=== PATIENT | female | born 1935 | race Caucasian/White ===

== ENCOUNTER → 2018-03-25 13:57 | Outpatient (CLI) | payer MEDICARE, BC, SELFPAY ==
[2018-03-25 16:52] LABS: Hematocrit 41.7 % (37-47); Hemoglobin 13.8 g/dl (12.0-15.0); Mean Corp Hgb Conc 33.1 g/gl (32-36); Mean Corpuscular Hgb 32.1 pg (27.0-32.0); Mean Platelet Vol. 10.4 fl (6.2-12.0); Platelet Count 214 K/mm3 (150-450); RBC Distribution Width CV 12.7 % (11.6-14.6); RBC Distribution Width SD 44.1 fl (35.1-43.9); White Blood Count 4.3 K/mm3 (4.4-11.0)
[2018-03-25 16:56] LABS: Scan Indicated on CBC? Y/N NO
[2018-03-25 17:01] LABS: Albumin, Serum 3.6 g/dL (3.2-5.0); BUN 16 mg/dL (7-18); BUN/Creat Ratio 18.4 RATIO (10-20); Calcium,Total 8.8 mg/dL (8.5-10.1); Chloride 107 mmol/L (98-107); Creatinine, Serum 0.87 mg/dL (0.55-1.02); EST Glomerular Filtration Rate 66 mL/min (>60); Est Glom Filt Rate - Afr Amer 80 mL/min (>60); Glucose 98 mg/dL (74-106); Phosphorus 3.4 mg/dL (2.5-4.9); Potassium 4.2 mmol/L (3.5-5.1); Sodium Level 143 mmol/L (136-145)
== END ==
PROVIDERS: Visit Provider Internal Medicine Nephrology
DX: R33.9 Retention of urine, unspecified (principal)
CPT/HCPCS: 36415; 80069; 85027

== ENCOUNTER → 2018-03-27 11:47 | Outpatient (CLI) | payer MEDICARE, BC, SELFPAY ==
--- NOTE | 2018-03-27 11:55 | US_ITS ---
STUDY: RENAL ULTRASOUND - COMPLETE REASON FOR EXAM: Female, 82 years old. Urinary retention. TECHNIQUE: Ultrasound evaluation of the kidneys was performed with real-time and static funes-scale imaging. # of Images: 70 COMPARISON: None. FINDINGS: RIGHT KIDNEY: Normal location of the right kidney, which is normal in size. The right kidney measures 9 x 4.2 x 4.2 cm. There is a normal cortex of the right kidney. The renal cortex measures 1.2 cm. There is no right renal mass or cyst. There are no right renal calculi. There is no right hydronephrosis. DISTAL RIGHT URETER: There is non-visualization of the distal right ureter. There is no demonstrated right ureterovesical junction calculus. There is no demonstrated right ureteral jet. LEFT KIDNEY: Normal location of the left kidney, which is normal in size. The left kidney measures 11.4 x 4.7 x 3.8 cm. There is a normal cortex of the left kidney. The renal cortex measures 1.1 cm. There is no left renal mass or cyst. There are no left renal calculi. There is no left hydronephrosis. There is a duplicate left collecting system. DISTAL LEFT URETER: There is non-visualization of the distal left ureter. There is no demonstrated left ureterovesical junction calculus. There is no demonstrated left ureteral jet. BLADDER: The distended urinary bladder has a volume of 83 ml. The empty urinary bladder has a volume of 35 ml. The bladder is not well-distended and difficult to evaluate. There is no demonstrated mass within the urinary bladder. There are no demonstrated bladder calculi. US/Kidney and Bladder IMPRESSION: No evidence of hydronephrosis. Electronically Signed: Israel Santoyo MD at 3:40 EDT Tel , Service support ,
== END ==
PROVIDERS: Family Provider Student in an Organized Health Care Education/Training Program; PCP Student in an Organized Health Care Education/Training Program; Referring Provider Internal Medicine Nephrology; Visit Provider Internal Medicine Nephrology
DX: R33.9 Retention of urine, unspecified (principal)
CPT/HCPCS: 76770

== ENCOUNTER 2019-01-01 02:11 | Inpatient (IN) | payer MEDICARE, BC, SELFPAY ==
[2019-01-01] VITALS (12 sets, daily range): BP systolic 94–136; BP diastolic 48–65; PULSE 62–97; RESP 16–18; TEMP 36.1–37.3; O2SAT 95–99; BMI 25.8; BMI 25.1
--- NOTE | 2019-01-01 02:31 | RAD_ITS ---
HISTORY: CoughRAD - ChestFELLC/O LT GROIN PAIN, THIGH AND DISTAL LT FEMUR EXAMINATION/TECHNIQUE: XR Chest 1 View: Portable COMPARISON: None FINDINGS: Clothing artifact. Normal heart size. No vascular congestion, pleural effusion, or acute pulmonary infiltration. No pneumothorax. Atherosclerotic thoracic aorta. 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 RAD/Chest 1 View (Portable) IMPRESSION: No acute cardiopulmonary disease. at 0427 Reported and signed by: Miki Romero MD Electronically Signed: Miki Romero, at 4:26 EDT Tel , Service support ,
--- NOTE | 2019-01-01 02:31 | RAD_ITS ---
HISTORY: FELL C/O LT GROIN PAIN, THIGH AND DISTAL LT FEMUR EXAMINATION/TECHNIQUE: XR Pelvis 1 View COMPARISON: None FINDINGS: Generalized bony demineralization. Nondisplaced subcapital fracture of the left hip. Normal right hip. Chronic change with narrowing of the pubic symphysis accompanied by subchondral sclerosis of the pubic bones. Degenerative arthritis of the SI joints bilaterally and additional degenerative change of lower lumbar spine. RAD/Pelvis 1 or 2 Views IMPRESSION: 1. Acute, nondisplaced, subcapital fracture of left hip. 2. Chronic changes, as above. at 0414 Reported and signed by: Miki Romero MD Electronically Signed: Miki Romero, at 4:13 EDT Tel , Service support ,
--- NOTE | 2019-01-01 02:31 | RAD_ITS ---
HISTORY: FELL C/O LT GROIN PAIN, THIGH AND DISTAL LT FEMUR EXAMINATION/TECHNIQUE: XR left femur 4 views COMPARISON: AP pelvis 01/01/2019 FINDINGS: Acute, mildly displaced subcapital fracture of the left femoral neck. No dislocation. Intact distal left femur. No suspicious bony lesion. RAD/Femur Min 2 Views IMPRESSION: Acute, mildly displaced subcapital fracture of the left hip. Intact distal left femur. at 0418 Reported and signed by: Miki Romero MD Electronically Signed: Miki Romero, at 4:16 EDT Tel , Service support ,
--- NOTE | 2019-01-01 02:31 | ED.VIS.GEN ---
History of Present Illness Chief Complaint: Fall Informant: Patient Narrative: Patient presents with left hip injury. She stated that at 9 PM last night she was chasing her cat lost her balance and fell. She is having pain in the left groin. She took an aspirin which helped. She used ice and heat. Hurts to move. She is able to walk and wanted to make sure she did not fracture anything. Current severity is mild to moderate. No previous injury. Past Medical History - Allergies and Home Meds Allergies/Adverse Reactions: Allergies Sulfa (Sulfonamide Antibiotics) Adverse Reaction (Verified 01/01/19 02:14) Unknown Primary Care Physician: Bunny Diaz DO [Primary Care Provider] - Prior records reviewed: Yes Past Medical History: - - Reviewed Surgical History: - - Reviewed Smoking Status: Former smoker Alcohol: None Drugs: None Review of Systems General: Denies: Chills, Fever, Sweats Eyes: Denies: Visual changes - bilaterally, Diplopia ENT: Denies: Rhinorrhea, Sore throat Cardiovascular: Denies: Chest pain, Palpitations Respiratory: Denies: Dyspnea, Cough, Dyspnea on exertion Gastrointestinal: Denies: Abdominal pain, Nausea, Vomiting, Diarrhea, Melena, Hematochezia Genitourinary: Denies: Dysuria, Hematuria, Frequency Musculoskeletal: Reports: Extremity Pain - See HPI. Denies: Back pain Skin: Denies: Rash, Wounds Neurological: Denies: Headache, Weakness, Numbness Physical Exam Vital Signs/Narrative: Vital Signs Temp Pulse Resp BP Pulse Ox 01/01/19 02:12 98.3 F 95 18 136/51 H 97 General: Well nourished, Well developed, No Acute Distress Head: Normocephalic, Atraumatic Eyes: Perrl, EOMI ENT: Moist mucous membranes, No rhinorrhea Neck: Supple, Nontender Cardiovascular: Regular rate, Regular rhythm, No murmurs Respiratory: No distress, CTA bilaterally, Chest nontender Abdomen: Soft, Nontender, Nondistended, Normal bowel sounds Back: Nontender, Normal Inspection Extremities: No edema, Tenderness - Tenderness elicited in the left hip deep in the groin with logroll and lifting the leg. Tenderness with active range of motion of the left lower leg. No bony step-off or deformity.. Negative for: Nontender Skin: Normal color, No rash Neurological: Alert, Oriented x3, Cranial nerves II-XII grossly intact, Normal Strength, Normal Sensation Psychological: Normal affect, Normal Mood Diagnostic/Tx/Re-eval - Medical Decision Making Patient stated she did not want anything for pain. X-ray of the left hip obtained left hip shows a cervical neck fracture. Chest x-ray showed nothing acute. EKG shows sinus rhythm at a rate of 78. Right bundle branch block noted. Screening labs obtained and negative. Patient discussed the hospitalist and will be admitted ED Disposition - Plan for ED Patient: Diagnosis: Hip fracture, left Referrals: Bunny Diaz DO [Primary Care Provider] -
--- NOTE | 2019-01-01 03:00 | EKG12_ITS ---
Test Reason : PRE-OP Blood Pressure : / mmHG Vent. Rate : 078 BPM Atrial Rate : 078 BPM P-R Int : 160 ms QRS Dur : 116 ms QT Int : 378 ms P-R-T Axes : 064 -39 012 degrees QTc Int : 430 ms Normal sinus rhythm Left axis deviation Right bundle branch block Moderate voltage criteria for LVH, may be normal variant Abnormal ECG Confirmed by ERNIE GARCIA, ERASMO ([id number]), news assignment editor PARISA LAU ([id number]) on 01/02/2019 9:43:06 AM Referred By: Byron Espitia Confirmed By:YULISA KLEIN MD
[2019-01-01 03:24] LABS: Absolute Neutrophil Count 6.3 X10^3/uL (2.0-7.7); Basophil# 0.03 X10^3/uL; Basophil% 0.4 % (0-1); Eosinophil# 0.04 X10^3/uL; Eosinophils% 0.5 % (0-5); Hemoglobin 14.5 g/dL (12.0-15.0); Mean Corp Hgb Conc 33.7 g/dL (32-36); Mean Corpuscular Hgb 31.9 pg (27.0-32.0); Mean Corpuscular Volume 94.5 fL (81-99); Mean Platelet Vol. 9.8 fl (6.2-12.0); Monocyte# 0.91 X10^3/uL; Monocyte% 10.9 % (0-10); NRBC Flagged by Analyzer 0 % (0-5); Neutrophil # 6.33 X10^3/uL (2.7-7.7); Platelet Count 198 K/mm3 (150-450); RBC Distribution Width CV 12.1 % (11.6-14.6); RBC Distribution Width SD 42.4 fl (35.1-43.9); Red Blood Count 4.55 M/mm3 (4.2-5.4); White Blood Count 8.3 K/mm3 (4.4-11.0)
[2019-01-01 03:30] LABS: Partial Thromboplast Time 26.6 Seconds (24.1-36.2); Prothrombin Time (Protime)PT. 13.3 SECONDS (11.7-14.9)
[2019-01-01 03:34] LABS: Anion Gap 8 (5-15); BUN 14 mg/dL (7-18); BUN/Creat Ratio 21.1 RATIO (10-20); Calcium,Total 8.9 mg/dL (8.5-10.1); Chloride 106 mmol/L (98-107); Creatinine, Serum 0.66 mg/dL (0.55-1.02); EST Glomerular Filtration Rate 90 mL/min (>60); Est Glom Filt Rate - Afr Amer 109 mL/min (>60); Estimated Creatinine Clearance 30.08 ml/min; Glucose 110 mg/dL (74-106); Potassium 4.1 mmol/L (3.5-5.1); Sodium Level 140 mmol/L (136-145)
--- NOTE | 2019-01-01 04:15 | PCM.HP.STD ---
Problem List (1) Hip fracture, left Status: Acute History of Present Illness Date of Admission: 01/01/19 Chief Complaint: Left hip pain The patient is a 83 year old F with no significant past medical history who presents after a fall today. She states that she was chasing her cat and tripped and fell on her left hip. She had immediate pain and came to the ER. X-ray of her hip shows a cervical fracture. In the ER her vital signs are stable and her labs are unremarkable, chest x-ray was normal as was EKG. She states that she does not have any shortness of breath or chest pain currently or if she walks up and down stairs which she does a couple times a day at her house. Past Medical History Allergies Sulfa (Sulfonamide Antibiotics) Adverse Reaction (Verified 01/01/19 02:14) Unknown Home Medications: Ambulatory Orders Medication Instructions Recorded Estradiol 0.01 units TRANSDERM. QWEEK 01/01/19 Surgical History: adenoidectomy, appendectomy, tonsillectomy, - Lives: Alone Smoking Status: Former smoker Tobacco Use: Cigarettes Alcohol: None Drugs: None - *Family History Maternal History Items: Renal Disease Paternal History Items: No pertinent history Review of Systems Constitutional: Denies: Chills, Fever, Weight Change HEENT: Denies: Head Aches, Sinus Congestion, Sinus Drainage Cardiovascular: Denies: Chest Pain, Palpitations Respiratory: Denies: Cough, Shortness of breath at rest, Sputum production Gastrointestinal: Denies: Abdominal Pain, Nausea, Vomiting Genitourinary: Denies: Dysuria Musculoskeletal: Reports: Leg Pain. Denies: Joint Pain, Joint Tenderness Skin: Denies: Rash, Wounds Neurological: Denies: Numbness, Tingling, Focal weakness Psychiatric: Denies: Anxiety, Depression Hematologic/ Lymphatic: Denies: Easy Bruising, Easy Bleeding VTE Information - Inpt Only VTE Present on Admission: No - Physical Exam General: Alert, Oriented x3, Cooperative, No apparent distress HEENT: Atraumatic, PERRLA, EOMI, Normocephalic Oral: Moist Mucosa Neck: Supple, No JVD Lungs: Clear to auscultation, Normal air movement, No rhonchi, No wheeze, No rales Cardiovascular: Regular rate, Regular Rhythm, Normal S1, Normal S2, No murmurs Abdomen: Soft, Non Tender, Non-Distended, No Hepato-splenomegaly Extremities: No edema, Capillary Refill Less than 3 Seconds Skin: No rashes, No breakdown Musculoskeletal: Tenderness - Left hip Neurological: Neuro grossly intact, Sensory exam intact to light touch and pain Psych/Mental Status: Normal Affect, Appropriate Vital Signs Temp Pulse Resp BP Pulse Ox 98.3 F 75 18 129/61 H 98 01/01/19 04:10 01/01/19 04:10 01/01/19 04:10 01/01/19 04:10 01/01/19 04:10 Oxygen Delivery Method Room Air Weight: 132 lb 4.438 oz Body Mass Index (BMI) 25.8 Laboratory Tests Past 24 Hrs 01/01/19 01/01/19 01/01/19 03:15 03:15 03:15 WBC 8.3 RBC 4.55 Hgb 14.5 Hct 43.0 MCV 94.5 MCH 31.9 MCHC 33.7 RDW Std Deviation 42.4 RDW Coeff of Camille 12.1 Plt Count 198 MPV 9.8 Immature Gran % (Auto) 0.200 Neut % (Auto) 76.0 H Lymph % (Auto) 12.0 L Edmonson % (Auto) 10.9 H Eos % (Auto) 0.5 Baso % (Auto) 0.4 Absolute Neuts (auto) 6.3 Absolute Lymphs (auto) 1.00 Absolute Nucleated RBC 0.00 Nucleated RBC % 0 PT 13.3 INR 1.0 APTT 26.6 Sodium 140 Potassium 4.1 Chloride 106 Carbon Dioxide 26.0 Anion Gap 8 BUN 14 Creatinine 0.66 Estim Creat Clear Calc 30.08 Est GFR (MDRD) Af Amer 109 Est GFR (MDRD) Non-Af 90 BUN/Creatinine Ratio 21.1 H Glucose 110 H Calcium 8.9 Assessment/Plan All Active Problems Hip fracture, left (Acute) 1. Left cervical hip fracture -This is due to a mechanical fall -We will make n.p.o. for now and consult orthopedic surgery for evaluation -Morphine IV for pain -PT/OT -PT/INR is pending however she is low risk for surgery 2. She sees her doctor regularly and takes no scheduled medications, she occasionally uses an albuterol inhaler and occasionally uses a vaginal estrogen cream. DVT: SCDs Code Visit Inpatient E&M: 91562 Init Hosp L2
[2019-01-01 05:43] LABS: Absolute Lymphocyte Count 0.82 X10^3/uL (0.83-4.51); Absolute Neutrophil Count 5.7 X10^3/uL (2.0-7.7); Basophil# 0.03 X10^3/uL; Basophil% 0.4 % (0-1); Eosinophil# 0.01 X10^3/uL; Eosinophils% 0.1 % (0-5); Hematocrit 41.9 % (37-47); Lymphocyte # 0.82 X10^3/ul (4.0); Lymphocyte % 11.2 % (19-41); Mean Corp Hgb Conc 33.4 g/dL (32-36); Mean Corpuscular Hgb 31.1 pg (27.0-32.0); Mean Corpuscular Volume 93.1 fL (81-99); Mean Platelet Vol. 10.1 fl (6.2-12.0); Monocyte# 0.72 X10^3/uL; Monocyte% 9.8 % (0-10); NRBC Flagged by Analyzer 0 % (0-5); Neutrophil # 5.73 X10^3/uL (2.7-7.7); Neutrophil % 78.1 % (47-70); Platelet Count 194 K/mm3 (150-450); RBC Distribution Width CV 12.1 % (11.6-14.6); RBC Distribution Width SD 41.8 fl (35.1-43.9); White Blood Count 7.3 K/mm3 (4.4-11.0)
[2019-01-01 05:57] LABS: Anion Gap 8 (5-15); BUN 13 mg/dL (7-18); BUN/Creat Ratio 19.8 RATIO (10-20); Calcium,Total 8.7 mg/dL (8.5-10.1); Chloride 108 mmol/L (98-107); Creatinine, Serum 0.66 mg/dL (0.55-1.02); EST Glomerular Filtration Rate 91 mL/min (>60); Est Glom Filt Rate - Afr Amer 111 mL/min (>60); Estimated Creatinine Clearance 38.34 ml/min; Glucose 105 mg/dL (74-106); Sodium Level 142 mmol/L (136-145)
[2019-01-01] MEDS: Morphine 2 MG/ML Syringe IV ×2 (09:33→20:29)
--- NOTE | 2019-01-01 10:00 | CASEMGMT ---
Social Work Assessment Referral Date: 01/01/2019 Date of Assessment 01/01/2019 Reason for consult: Hip fracture, SNF likely Informant: SW Personal Status: SW met with pt to complete initial assessment. SW introduced self and role at [facility]. Pt is alert and orientated x3. Pt states that she lives with her cat in a one story home. Pt states that her washer is in the basement. Pt states there are two steps to enter the home and there are railings around the steps. Pt states her PCP is Dr. Diaz and preferred pharmacy is [facility]. DME include [facility]. Pt states that she was independent with ADLS except she is lazier than she used to be and doesn't clean her house as much as she used to. Pt states that she has good support and her niece is supportive and her neighbor. Pt states she doesn't like to bother people to help her though. Substance Abuse Hx: Pt denied. Mental Health Hx: Pt states she has a history of anxiety and depression. Pt denied taking any medications for anxiety and depression, states the only medication she takes is her asthma medication. Pt denied any suicidal thoughts/plans/ideations. SAGRARIO educated pt on discharge options including home with HHC, outpatient therapy, and SNF. Pt states she will probably have to go to a SNF. SW educated pt on area SNF. SW informed pt that TCU at [facility] doesn't have any beds. Pt is agreeable to [facility]. SAGRARIO explained Medicare guidelines and coverage at SNF and referral process. Pt states understanding. SW faxed referral to [facility]. SAGRARIO placed a call to Holly at [facility] and left her a message updating her on referral and that pt is having surgery today and this worker will fax PT/OT when available. Plan: [facility] Saturday pending acceptance Dagmar Truong MEDICAL PROGRAM SPECIALIST, HYDRO PLANT OPERATOR
--- NOTE | 2019-01-01 11:31 | PCM.CONS.GEN ---
Reason for Consult Date of Consultation: 01/01/19 Reason for Consultation: left hip pain History of Present Illness: The patient is a 83 year old F independent ambulator who fell onto left hip and had immediate pain and decreased ability to wb. presents to er and xrays confirm nd left fem neck frx and ortho consulted. denies head trauma, loc, n/v/ or other constitutional symptoms. states pain localized to groin only, denies pain in other joints, etc. [] Past Medical History Allergies Sulfa (Sulfonamide Antibiotics) Adverse Reaction (Verified 01/01/19 02:14) Unknown Home Medications: Ambulatory Orders Medication Instructions Recorded Multivit with Calcium,Iron,Min 1 ea PO DAILY 01/01/19 [Multiple Vitamins For Women] Vit D3/Folic Acid/B2/B6/B12 1 ea PO BID 01/01/19 [Folgard Tablet] Calcium Carbonate [Tums] 500 mg PO BID #1 tab 01/02/19 Hydrocodone Bitart/Apap 5-325 1 - 2 tab PO Q6H PRN PRN 7 Days 01/02/19 [[place] 5/325] #30 tab Surgical History: adenoidectomy, appendectomy, tonsillectomy, - Lives: Alone Smoking Status: Former smoker Tobacco Use: Cigarettes Alcohol: None Drugs: None - *Family History Maternal History Items: Renal Disease Paternal History Items: No pertinent history Review of Systems Constitutional: Denies: Chills, Fever, Weight Change HEENT: Denies: Head Aches, Sinus Congestion, Sinus Drainage Cardiovascular: Denies: Chest Pain, Palpitations Respiratory: Denies: Cough, Shortness of breath at rest, Sputum production Gastrointestinal: Denies: Abdominal Pain, Nausea, Vomiting Genitourinary: Denies: Dysuria Musculoskeletal: Reports: Joint Pain - left groin. Denies: Joint Tenderness Skin: Denies: Rash, Wounds Neurological: Denies: Numbness, Tingling, Focal weakness Psychiatric: Denies: Anxiety, Depression, Homicidal Ideations, Suicidal Ideations Hematologic/ Lymphatic: Denies: Easy Bruising, Easy Bleeding - Physical Exam General: Alert, Oriented x3, Cooperative HEENT: Atraumatic, PERRLA, EOMI, Normocephalic Neck: Supple, No JVD, Negative Carotid Bruits Lungs: Clear to auscultation, Normal air movement Cardiovascular: Regular rate, No murmurs Abdomen: Bowel Sounds Present, Soft, Non Tender Extremities: No edema, Capillary Refill Less than 3 Seconds Skin: No rashes, No breakdown Musculoskeletal: Tenderness - left groin, neg sec survey, arom/prom ankle intact, compts soft, sgi Neurological: Cranial nerves II-XII grossly intact Psych/Mental Status: Normal Affect, Appropriate Vital Signs Temp Pulse Resp BP Pulse Ox 98.2 F 84 18 126/58 H 95 01/01/19 08:40 01/01/19 08:40 01/01/19 08:40 01/01/19 08:40 01/01/19 08:40 Oxygen Delivery Method Room Air Weight: 127 lb 13.89 oz Body Mass Index (BMI) 25.1 Intake and Output for Last 24 Hours 12/30/18 12/31/18 01/01/19 23:59 23:59 23:59 Output Total 600 / 600 Balance -600 / -600 Laboratory Tests Past 24 Hrs 01/01/19 01/01/19 01/01/19 03:15 03:15 03:15 WBC 8.3 RBC 4.55 Hgb 14.5 Hct 43.0 MCV 94.5 MCH 31.9 MCHC 33.7 RDW Std Deviation 42.4 RDW Coeff of Camille 12.1 Plt Count 198 MPV 9.8 Immature Gran % (Auto) 0.200 Neut % (Auto) 76.0 H Lymph % (Auto) 12.0 L Frederick % (Auto) 10.9 H Eos % (Auto) 0.5 Baso % (Auto) 0.4 Absolute Neuts (auto) 6.3 Absolute Lymphs (auto) 1.00 Absolute Nucleated RBC 0.00 Nucleated RBC % 0 PT 13.3 INR 1.0 APTT 26.6 Sodium 140 Potassium 4.1 Chloride 106 Carbon Dioxide 26.0 Anion Gap 8 BUN 14 Creatinine 0.66 Estim Creat Clear Calc 30.08 Est GFR (MDRD) Af Amer 109 Est GFR (MDRD) Non-Af 90 BUN/Creatinine Ratio 21.1 H Glucose 110 H Calcium 8.9 Blood Type Antibody Screen 01/01/19 01/01/19 01/01/19 05:05 05:05 11:05 WBC 7.3 RBC 4.50 Hgb 14.0 Hct 41.9 MCV 93.1 MCH 31.1 MCHC 33.4 RDW Std Deviation 41.8 RDW Coeff of Camille 12.1 Plt Count 194 MPV 10.1 Immature Gran % (Auto) 0.400 Neut % (Auto) 78.1 H Lymph % (Auto) 11.2 L Frederick % (Auto) 9.8 Eos % (Auto) 0.1 Baso % (Auto) 0.4 Absolute Neuts (auto) 5.7 Absolute Lymphs (auto) 0.82 L Absolute Nucleated RBC 0.00 Nucleated RBC % 0 PT INR APTT Sodium 142 Potassium 4.0 Chloride 108 H Carbon Dioxide 26.0 Anion Gap 8 BUN 13 Creatinine 0.66 Estim Creat Clear Calc 38.34 Est GFR (MDRD) Af Amer 111 Est GFR (MDRD) Non-Af 91 BUN/Creatinine Ratio 19.8 Glucose 105 Calcium 8.7 Blood Type Pending Antibody Screen Pending Assessment/Plan All Active Problems Hip fracture, left (Acute) to OR today pending hospitalist clearance/ ok for surgery perc screw fixation consent left hip ancef 2g octor Reviewed the pre-operative plans with the patient. Risks and benefits of the procedure were fully explained, including but not limited to infection, neurovascular injury, continued pain, arthritis, stiffness, need for further surgery, re-injury, DVT, PE, general risks of anesthesia, and loss of limb or life. The patient understands all the risks and does wish to proceed with written consent.
--- NOTE | 2019-01-01 12:43 | NURSING ---
female arrived to floor, states she is patients neighbor yareli and i came to get her house tang. she told me it is in her purse. i have to go feed her cat. informed visitor pt off floor and will check with pt. said nurse phoned down to AC and directly spoke with pt- pt states that her tang is in her purse in her room and it is okay to give it to Yareli her neighbor and Yareli can keep it. Purse obtained from pt locker- tang fob with green insurance tag on it given to Yareli and then phone handed directly to Deborah and she spoke directly to pt. Purse placed back in locker in pt room.
[2019-01-01] MEDS: Cefazolin 2 GM in 0.9% Normal Saline 100 ML IV (13:11)
[2019-01-01] MEDS: Mupirocin Ointment 22gm Tube 1 APPLIC (14:19)
--- NOTE | 2019-01-01 14:30 | RAD_ITS ---
STUDY: X-RAY - PELVIS AND LEFT HIP REASON FOR EXAM: Hip fracture ORIF. TECHNIQUE: 2 intraoperative views of the pelvis and hip. COMPARISON: Radiographs 01/01/2019. FINDINGS: There are 3 cannulated screws transfixing a femoral neck fracture in anatomic alignment and position. Electronically Signed: Solis Charles MD at 15:02 EDT Tel , Service support , RAD/HIP, UNI W/ Pelvis 2-3 Views
--- NOTE | 2019-01-01 14:42 | CHAPLAIN ---
patient and bed out of room; left calling card
--- NOTE | 2019-01-01 14:56 | RAD_ITS ---
STUDY: X-RAY - PELVIS AND LEFT HIP REASON FOR EXAM: Postop left hip. TECHNIQUE: 2 views of the pelvis and hip. COMPARISON: Radiographs 01/01/2019. FINDINGS: There are skin lulu overlying the proximal left thigh with postoperative gas. Normal bilateral superior and inferior pubic rami. There are degenerative changes of the pubic symphysis. Normal bilateral ischial tuberosities. There are cannulated screws transfixing a left femoral neck fracture in anatomic alignment and position. Normal acetabulum. Normal hip joint. RAD/Hip Min 2 Views (Portable) IMPRESSION: ORIF of left femoral neck fracture without evidence of complication. Electronically Signed: Solis Charles MD at 15:41 EDT Tel , Service support ,
--- NOTE | 2019-01-01 14:57 | OP.PCM_ITS ---
Report of Operation Date of Procedure: 01/01/19 Pre-Operative Diagnosis: left hip nd fem neck fracture Post-Operative Diagnosis: same Surgery/Procedure Performed:: left hip perc screw fixation/ 7.3 mayda screws synthes process inspector: ruthie Type of Anesthesia:: General Anesthesiologist: Rom Bose Estimated Blood Loss (mL): minimal Fluids Replaced: see anesthesia chart Description of Procedure: preop note Patient is not at home ambulating and fell onto her left hip. Unavailable to weight-bear and was called and sent to the ER or x-rays showed a nondisplaced femoral neck fracture. Risk benefits alternatives surgery discussed with patient. Risks including but not limited to blood loss, blood clot, infection, neurovascular injury, avascular necrosis need for conversion to hemiarthroplasty versus a total hip, loss of life and loss of limb. Patient is more like proceed with left percutaneous screw fixation of the hip. Operative note Patient seen and examined preop holding area. Left hip was marked. Patient brought to the operating placed supine the operating table. Sign, issues, antibiotics were administered. Patient was placed in traction table and we did use a little bit of traction in order to gain her a little bit of length because she was a little bit of impacted valgus impacted. We then used fluoroscopy in both AP and lateral planes to ensure that we had anatomic reduction. She did have at that time. The left leg was then prepped and draped usual sterile fashion. We then used the inferior most screw placed that up into the center of the femoral head we then use a bullet guide to place our more superior anterior and superior posterior screw guidewires. We then measured the accordingly and then placed the corresponding's 7.3 cannulated Synthes screws into the femoral head making sure not to encroach into the joint. We took multiple planes in AP and lateral in order to ensure good reduction and maintenance of our screw fixation which we did have. The incision was closed irrigated with copious muscle sterile saline. Was closed with deep 1 subcuticular 2 oh and lulu. Sterile dressings were applied. Patient tired procedure well no complication transferred recovery room in stable condition. Postoperative note Weight-bear as tolerated Anticoag ancef X-rays Call with increased pain numbness tingling or further issues arise next This note was generated with [employer] dictation software. It may contain incorrect words, spelling, and punctuation that were not noted in checking the note before signing. - Admit VTE Documentation VTE Mechan Device Prophylaxis: SCD's
--- NOTE | 2019-01-01 15:04 | CASEMGMT ---
Social Work Note SW received call from Holly at [facility] stating she is able to accept pt on Saturday but would like operative report and PT/OT once available. Pt is still off floor for surgery. Plan: [facility] Saturday Dagmar Truong MSW, PANEL WIRER
--- NOTE | 2019-01-01 17:19 | PCM.HOSP.N ---
Hospitalist Note Patient was seen and examined today before her ORIF of her left hip fracture. Patient appeared stable preop for the surgery, I reviewed the patient's EKG and performed a physical exam. Patient will need placement in a senior living facility at the time of discharge from the hospital. I discussed this with her today.
--- NOTE | 2019-01-01 20:20 | NURSING ---
Pt OOB for first time post-op to [facility]. Tolerated well.
[2019-01-01] MEDS: Cefazolin 1 GM/50 ML BAG IV (20:39)
[2019-01-01] MEDS: HYDROcodone Bitartrate/Apap 5/325 Tablet PO (22:55)
[2019-01-02 03:00] VITALS: BP 95/48; PULSE 83; RESP 16; TEMP 36.7; O2SAT 93
[2019-01-02] MEDS: HYDROcodone Bitartrate/Apap 5/325 Tablet PO ×2 (04:56→12:01)
[2019-01-02] MEDS: Cefazolin 1 GM/50 ML BAG IV (04:56)
[2019-01-02 07:58] VITALS: BP 98/48; PULSE 81; RESP 16; TEMP 37; O2SAT 92
--- NOTE | 2019-01-02 10:16 | PCM.HP.STD ---
History of Present Illness Date of Admission: 01/02/19 Chief Complaint: left hip pain The patient is a 83 year old F presents to [facility] with debility sp left hip fx orif performed 01/01/[address] morejon. lives alone. believes her hip fx may have actually caused her to fall. house is one story but basement laundry. lives independently. post op course has been uneventful. pain controlled. goal of rehab is muslim of prior level of functional independence. per admit note:The patient is a 83 year old F with no significant past medical history who presents after a fall today. She states that she was chasing her cat and tripped and fell on her left hip. She had immediate pain and came to the ER. X-ray of her hip shows a cervical fracture. In the ER her vital signs are stable and her labs are unremarkable, chest x-ray was normal as was EKG. She states that she does not have any shortness of breath or chest pain currently or if she walks up and down stairs which she does a couple times a day at her house. Past Medical History Allergies Sulfa (Sulfonamide Antibiotics) Adverse Reaction (Verified 01/01/19 02:14) Unknown Home Medications: Ambulatory Orders Medication Instructions Recorded Calcium Carbonate [Tums] 500 mg PO DAILY@0800 01/01/19 Estradiol 0.01 units TRANSDERM. QWEEK 01/01/19 Ginkgo Biloba 120 mg PO BID 01/01/19 Lactobacillus Acidophilus 1 ea PO DAILY 01/01/19 [Probiotic Acidophilus] Magnesium Oxide [Mag-Oxide] 200 mg PO DAILY 01/01/19 Multivit with Calcium,Iron,Min 1 ea PO DAILY 01/01/19 [Multiple Vitamins For Women] Papaya 1 ea PO DAILY 01/01/19 Vit D3/Folic Acid/B2/B6/B12 1 ea PO BID 01/01/19 [Folgard Tablet] Surgical History: adenoidectomy, appendectomy, tonsillectomy, - Lives: Alone Smoking Status: Former smoker Tobacco Use: Cigarettes Alcohol: None Drugs: None - *Family History Maternal History Items: Renal Disease Paternal History Items: No pertinent history Review of Systems Constitutional: Denies: Chills, Fever, Weight Change HEENT: Denies: Head Aches, Sinus Congestion, Sinus Drainage Cardiovascular: Denies: Chest Pain, Palpitations Respiratory: Denies: Cough, Shortness of breath at rest, Sputum production Gastrointestinal: Denies: Abdominal Pain, Nausea, Vomiting Genitourinary: Denies: Dysuria Musculoskeletal: Reports: Joint Pain. Denies: Joint Tenderness Skin: Denies: Rash, Wounds Neurological: Denies: Numbness, Tingling, Focal weakness Psychiatric: Denies: Anxiety, Depression, Homicidal Ideations, Suicidal Ideations Hematologic/ Lymphatic: Denies: Easy Bruising, Easy Bleeding VTE Information - Inpt Only VTE Present on Admission: Yes VTE Mechan Device Prophylaxis: SCD's Patient Problems: Active and Suspected Problems Hip fracture, left (Acute) - Physical Exam General: Alert, Oriented x3, Cooperative HEENT: Atraumatic, PERRLA, EOMI, Normocephalic Neck: Supple, No JVD, Negative Carotid Bruits Lungs: Clear to auscultation, Normal air movement Cardiovascular: Regular rate, No murmurs Abdomen: Bowel Sounds Present, Soft, Non Tender Extremities: No edema, Capillary Refill Less than 3 Seconds Skin: No rashes, No breakdown Musculoskeletal: No Tenderness to Palpation of Joints or Extremities Neurological: Cranial nerves II-XII grossly intact Psych/Mental Status: Normal Affect, Appropriate Vital Signs Temp Pulse Resp BP Pulse Ox 37.0 C 81 16 98/48 L 92 01/02/19 07:58 01/02/19 07:58 01/02/19 07:58 01/02/19 07:58 01/02/19 07:58 Oxygen Flow Rate (L/min) 2 Oxygen Delivery Method Room Air Weight: 58 kg Body Mass Index (BMI) 25.1 Intake and Output for Last 24 Hours 12/31/18 01/01/19 01/02/19 23:59 23:59 23:59 Intake Total 1399 / 2014 943 / 943 Output Total 1200 / 1300 100 / 100 Balance 200 / 715 843 / 843 Laboratory Tests Past 24 Hrs 01/01/19 11:05 Blood Type A POSITIVE Antibody Screen NEGATIVE Current Home Med List Medication Instructions Recorded Confirmed Type Calcium Carbonate [Tums] 500 mg PO DAILY@0800 01/01/19 01/01/19 History Estradiol 0.01 units TRANSDERM. QWEEK 01/01/19 01/01/19 History Ginkgo Biloba 120 mg PO BID 01/01/19 01/01/19 History Lactobacillus Acidophilus 1 ea PO DAILY 01/01/19 01/01/19 History [Probiotic Acidophilus] Magnesium Oxide [Mag-Oxide] 200 mg PO DAILY 01/01/19 01/01/19 History Multivit with Calcium,Iron,Min 1 ea PO DAILY 01/01/19 01/01/19 History [Multiple Vitamins For Women] Papaya 1 ea PO DAILY 01/01/19 01/01/19 History Vit D3/Folic Acid/B2/B6/B12 1 ea PO BID 01/01/19 01/01/19 History [Folgard Tablet] Current Medications Hydrocodone Bitart/Acetaminophen 1 - 2 tablet 01/01/19 14:55 01/02/19 04:56 [place] 5mg-325mg PO 2 tablet Q6H PRN PRN Administration Mild-moderate pain (scale 1-5) Melatonin 3 mg 01/01/19 04:25 Melatonin PO QHS PRN PRN INSOMNIA Morphine Sulfate 2 mg 01/01/19 04:25 01/01/19 20:29 IV 2 mg Q3H PRN PRN Administration SEVERE PAIN (6-10/10) Ondansetron HCl 4 mg 01/01/19 04:25 Zofran IV Q8H PRN PRN NAUSEA/VOMITING Sodium Chloride 10 - 40 ml 01/01/19 05:30 IV UD PRN SALINE FLUSH Assessment/Plan All Active Problems Hip fracture, left (Acute) left hip fx sp orif, previsously functionallly independent, goal of rehab is muslim of functional independence pt for gait and balance ot for adls prn analgesics bowel protocol dvt prophylaxis: scds
--- NOTE | 2019-01-02 10:22 | PCM.RU.PYE ---
Admission Information Status Changes from Prescreening?: No changes Identified Actual Problem List:: Falls, Pain, ALteration in Cmfrt, Alteration in Nutrition, Mobility Impaired, Self Care Deficit, Ineffect.D/C Plan r/t Psy Potential Problem List:: DVT, Bleeding, Infection, UTI, Aspiration, Falls, Skin Integrity, Depression Risk of Complications DVT: LMWH, LILA Hose, Sequential Compression Device Bleeding: Monitor Lab Values, Nursing to Teach Precautions for anti-coagulation therapy., Wound, if applicable, to be assessed every shift., Stroke patients assessed for lethargy or change in status. Infection: Clinical Staff to Monitor for S/S of infection:, S/S of infection include fever, redness, warmth, etc. Urinary Tract Infection: Monitor for frequency, burning, discomfort, or incontinence., Nursing will obtain urine sample for urinalysis and C&S when ordered. Aspiration: Clinical staff will monitor for coughing, drooling, congestion., Speech will evaluate swallowing and dsyphasia., Nursing will monitor patient swallowing during meals. Falls: Patient will be evaluated for Fall Precautions, Patient will be placed on Fall Precautions as indicated per protocol. Skin Breakdown: Nursing will assess skin daily using assessment tool., Nursing will place on Skin Breakdown Precautions as indicated. Pain: Clinical staff will assess patient's pain level per protocol., Medications will be given, if needed, and the pain level reassessed., Other methods: Massage, distraction, decrease stimulus, etc. used PRN. Plan of Care Patient requires physician specializing in physical medicine and rehab oversight to provide close medical supervision of rehab issues including: Pain Management, Sleep Problems, Bowel and Bladder, Medical and co-morbidity Management, DVT prophylaxis, Rehabilitation Leadership, Coordination of treatment team Patient needs Physical Therapy: For a minimum of 1 hour, At least 5 out of 7 days Patient needs Physical Therapy to improve:: Mobility, Mobility, Mobility, Strengthening, Transfers, Stretching, ROM, Endurance, Stairs, Gait, Balance Patient needs Occupational Therapy: For a minimum of 1 hour, At least 5 out of 7 days Patient needs Occupational Therapy to improve ADL's incl.: Eating, Grooming, Bathing, Dressing, Toileting, Toilet transfers, Community Reintegration, Higher functioning activities, Household tasks, Adaptive Equipment, Splinting, Other activities as determined Patient requires 24/ Rehabilitation Nursing for: Pain Issues, Identifying and preventing risk factors, Monitoring and reporting current medical conditions, Assisting with ambulation, transfer, and all ADL's, Teaching patients about disease process and medications, Family teaching, Providing safe environment, Bowel and Bladder Issues, Skin integrity, Medication Management Patient needs Grey Goods Tester/ Case Management for: Discharge Planning, Arranging Home Equipment or Services, Family Interventions Patient needs Dietary and Nutrition Services for: Adequate Nutrition, Nutritional Supplements, Nutritional Education Goals Patient will remain: free from falls, or injury at time of discharge. Patient will perform bed mobility at: MOD I level of assist. Patient will complete transfers from bed to chair at: MOD I level of assist. Patient will ambulate: 100 feet, with MOD I assist, with LRD Patient will complete upper body dressing at: MOD I level of assist. Patient will complete lower body dressing at: MOD I level of assist. Patient will complete toileting at: MOD I level of assist. Patient will perform bathing at: MOD I level of assist. Patient will complete grooming at: MOD I level of assist. Patient will complete home management skills at: MOD I level of assist. Patient will achieve: 12 stairs, at MOD I assist Patient will have pain level of: of 3 or less Patient's skin will: remain intact, free from infection. Patient will receive: adequate nutrition. Discharge Planning Pt Prognosis for Sig. Practical Improv. w/in Reasonable Time: Good Anticipated D/C Destination: Home with Outpt Therapy Was Preadmission Assessment Accurate?: Yes
--- NOTE | 2019-01-02 11:45 | CASEMGMT ---
Social Work Note SAGRARIO spoke with PT who recommends [facility] for pt. SAGRARIO informed PT that [facility] doesn't take weekend admissions but will call [facility] to confirm. SAGRARIO placed a call to Marce with [facility] and provided referral. Pt could discharge today or to Saturday if [facility] is able to accept pt. SAGRARIO informed Marce that pt will be at [facility] until Saturday regardless if pt needs to go to SNF. Marce states she will talk with Dr. Reynoso and give this worker a call back. Plan: [facility] vs [facility] Dagmar Truong GEOPHYSICAL OPERATOR, LOADER ENGINEER
--- NOTE | 2019-01-02 12:39 | CHAPLAIN ---
Type of Pastoral Visit _x__ Initial Visit ___ Follow-up Visit ___ On-call Visit ___ General Patient Visit ___ Spiritual Assessment ___ Family Conference ___ Bereavement ___ Rapid Response ___ Code Blue ___ Other (describe below) Pastoral Care Referral From _x__ Patient ___ Family ___ Nurse ___ Physician ___ State Patrol Officer ___ Cereal Maker ___ Other (describe below) Sacrament/Intervention _x__ Active listening ___ Anointing ___ Uatsdin ___ Bereavement ___ Communion _x__ Aleida exploration ___ _x__ Life review _x__ Prayer ___ Reconciliation ___ Sacrament of Sick _x__ Supportive presence ___ Wedding ___ Other (describe below) Pastoral Comments patient is talkative and pleasant; pt is waiting on decisions about where she might go next for rehab; pt does not have immediate family in this area and only living sister is in [place]; pt is without children; pt considers herself Congregation but does not attend [employer] nor is she connected to one; pt requested Bible to read while she is in hospital; this padded products finisher brought her a [place] Bible and told her to keep it; pt welcomed visit and prayer support
--- NOTE | 2019-01-02 14:12 | PCM.TXEXTCAR ---
- Diet 01/01/19 16:14 Diet: Regular Diet Is pt able to select menu?: Yes - Wound(s) Left Hip Wound Type: Surgical Incision - Therapies Physical Therapy: Eval and Treat Occupational Therapy: Eval and Treat - Problem/Diagnosis (1) Hip fracture, left Status: Acute Current Visit: Yes - Allergies/Procedures Done in Hospital Allergies/Adverse Reactions: Allergies Sulfa (Sulfonamide Antibiotics) Adverse Reaction (Verified 01/01/19 02:14) Unknown Procedures: - - left hip percutaneous screw fixation - Type of Care/Length of Stay Estimated LOS: Convalescent Care Less Than 30 days Type of Care Needed: Acute Rehab Rehab Potential: Good Prognosis: Good - Additional Orders/Day of Discharge H&P will serve as current which was dated: 01/01/19 Day of Discharge: 01/02/19 - Follow Up Care Primary Care Physician: Bunny Diaz DO [Primary Care Provider] -
[2019-01-02 14:27] VITALS: BP 105/44; PULSE 85; RESP 20; TEMP 36.6; O2SAT 94
--- NOTE | 2019-01-02 14:53 | CASEMGMT ---
Social Work Note SW received call from Marce with [facility] stating pt is able to discharge to today. Physician updated. SW in to update pt that she is able to discharge to today. Pt states understanding. SW placed a call to Holly at [facility] stating pt is now going to today and will no longer be coming to [facility] Saturday. Plan: today Dagmar Truong SCRAP SORTER, GERIATRIC ASSISTANT
--- NOTE | 2019-01-02 16:05 | PCM.DC.SUM ---
Discharge Date and Diagnosis Date of Admission: 01/01/19 Date of Discharge: 01/02/19 - Primary Discharge Diagnosis #1 left hip femoral neck fracture Hospital Course and Treatment Operations: - - Left hip percutaneous screw fixation Procedures: None Summary of Care Provided: The patient is a 83 year old F who was seen in the emergency room at [facility] with a chief complaint of left hip pain following a fall the day before. Patient states she lost her balance and fell, she complained of pain in her left groin area chiefly. X-rays obtained in the emergency room showed a left hip cervical neck fracture. Screening labs were obtained and were negative, EKG showed sinus rhythm at a rate of 78 with a right bundle branch block. Patient was admitted to [place] [id number], she was seen in consultation by orthopedic surgery who repaired her left hip fracture with a percutaneous screw insertion on 01/01/2019. Patient was seen by PT and OT and was felt to be stable for transfer to the inpatient rehab facility at [facility] on 01/02/2019. On examination she appeared in good health and spirits. Vital signs as documented. Skin warm and dry and without overt rashes. Neck without JVD. Lungs clear. Heart exam notable for regular rhythm, normal sounds and absence of murmurs, rubs or gallops. Abdomen unremarkable and without evidence of organomegaly, masses, or abdominal aortic enlargement. Extremities nonedematous. Neuro: Cranial nerves II through XII are grossly intact, no focal motor deficits were noted, sensation to light touch and pinprick is intact. Psych: Patient is alert and oriented x3, she does not appear anxious or depressed Patient had no untoward events during her hospital stay. - Physical Exam Vital Signs Temp Pulse Resp BP Pulse Ox 97.8 F 85 20 H 105/44 L 94 01/02/19 14:27 01/02/19 14:27 01/02/19 14:27 01/02/19 14:27 01/02/19 14:27 Oxygen Flow Rate (L/min) 2 Oxygen Delivery Method Room Air Weight: 58 kg Body Mass Index (BMI) 25.1 Intake and Output for Last 24 Hours 12/31/18 01/01/19 01/02/19 23:59 23:59 23:59 Intake Total 1400 / 2015 943 / 943 Output Total 1200 / 1300 100 / 100 Balance 200 / 715 843 / 843 Home Medications: Medications to take at Discharge Multivit with Calcium,Iron,Min [Multiple Vitamins For Women] 1 ea PO DAILY 01/01/19 Vit D3/Folic Acid/B2/B6/B12 [Folgard Tablet] 1 ea PO BID 01/01/19 Calcium Carbonate [Tums] 500 mg PO BID #1 tab 01/02/19 Hydrocodone Bitart/Apap 5-325 [[place] 5/325] 1 - 2 tab PO Q6H PRN PRN 7 Days #30 tab 01/02/19 Following Prescrptions Were Given to Patient: Hydrocodone Bitart/Apap 5-325 [[place] 5/325] 1 - 2 tab PO Q6H PRN PRN 7 Days #30 tab PRN Reason: Mild-moderate pain (scale 1-5) Prescription Printed Calcium Carbonate [Tums] 500 mg PO BID #1 tab Primary Care Physician: Bunny Diaz DO [Primary Care Provider] - Disposition: Inpt Rehab Unit/Facility Minutes spent on discharge:: 32 Patient Condition:: Stable Medical Necessity - Tobacco Use Smoking Status: Former smoker Tobacco Use: Cigarettes Meaningful Use Info Meaningful Use Diagnoses (Choose all that apply): None applicable Code Visit Inpatient E&M: 44947 Disch Hosp
== END 2019-01-02 15:00 | DRG 482 ==
LOC: ED 02:45 → MS3 04:03
PROVIDERS: Orthopaedic Surgery; Admitting Provider Family Medicine; Emergency Provider Emergency Medicine; Family Provider Student in an Organized Health Care Education/Training Program; PCP Student in an Organized Health Care Education/Training Program; Referring Provider Family Medicine; Visit Provider Internal Medicine
PROC: 0QH734Z Insertion of Internal Fixation Device into Left Upper Femur, Percutaneous Approach (ICD-10-PCS; principal; 2019-01-01 12:30)
DX: S72.002A Fracture of unspecified part of neck of left femur, initial encounter for closed fracture (principal); W01.0XXA Fall on same level from slipping, tripping and stumbling without subsequent striking against object, initial encounter
CPT/HCPCS: 36415; 71045; 72170; 73502; 73552; 76000; 80048; 85025; 85610; 85730; 86850; 86900; 93005; 97162; 97166; 99285; C1713; J7030; A4216; J2405

== ENCOUNTER 2019-01-02 15:22 | Inpatient (IN) | payer MEDICARE, BC, SELFPAY ==
[2019-01-01 11:50] VITALS: BMI 25.1
[2019-01-02 16:27] VITALS: BP 104/51; PULSE 94; RESP 18; TEMP 36.9; O2SAT 92; BMI 25.9; BMI 26.0
--- NOTE | 2019-01-02 17:18 | NURSING ---
Aware of being a fall risk and must ask for staff assist for needs.
[2019-01-02] MEDS: HYDROcodone Bitartrate/Apap 5/325 Tablet PO (18:14)
[2019-01-02 22:00] VITALS: BP 136/65; PULSE 98; RESP 18; TEMP 37.4; O2SAT 92
[2019-01-03] MEDS: HYDROcodone Bitartrate/Apap 5/325 Tablet PO ×4 (03:34→22:37)
[2019-01-03] MEDS: Enoxaparin 40 MG/0.4 ML Syringe SC (05:33)
[2019-01-03 07:14] LABS: Absolute Neutrophil Count 5.8 X10^3/uL (2.0-7.7); Basophil# 0.04 X10^3/uL; Basophil% 0.5 % (0-1); Eosinophil# 0.15 X10^3/uL; Eosinophils% 2.1 % (0-5); Hematocrit 36.1 % (37-47); Hemoglobin 11.8 g/dL (12.0-15.0); Lymphocyte % 8.2 % (19-41); Mean Corp Hgb Conc 32.7 g/dL (32-36); Mean Corpuscular Hgb 31.1 pg (27.0-32.0); Mean Corpuscular Volume 95.3 fL (81-99); Mean Platelet Vol. 10.2 fl (6.2-12.0); Monocyte# 0.71 X10^3/uL; Monocyte% 9.7 % (0-10); NRBC Flagged by Analyzer 0 % (0-5); Neutrophil # 5.79 X10^3/uL (2.7-7.7); Neutrophil % 79.2 % (47-70); POSITIVE DIFFERENTIAL YES; Platelet Count 149 K/mm3 (150-450); RBC Distribution Width CV 12.1 % (11.6-14.6); RBC Distribution Width SD 42.5 fl (35.1-43.9); Red Blood Count 3.79 M/mm3 (4.2-5.4); White Blood Count 7.3 K/mm3 (4.4-11.0)
[2019-01-03 07:18] LABS: Differential Indicated SCAN CRITERIA MET
[2019-01-03 07:35] LABS: ALB/GLOB Ratio 0.9 RATIO (0.9-2.4); AST(SGOT) 41 U/L (15-37); Alanine Aminotransfer ALT/SGPT 29 U/L (13-56); Albumin, Serum 2.6 g/dL (3.2-5.0); Alkaline Phosphatase 60 U/L (45-117); Anion Gap 6 (5-15); BUN 12 mg/dL (7-18); BUN/Creat Ratio 21.6 RATIO (10-20); Calcium,Total 7.8 mg/dL (8.5-10.1); Chloride 106 mmol/L (98-107); Creatinine, Serum 0.56 mg/dL (0.55-1.02); EST Glomerular Filtration Rate 111 mL/min (>60); Est Glom Filt Rate - Afr Amer 134 mL/min (>60); Estimated Creatinine Clearance 39.67 ml/min; Globulin 2.9 g/dL (2.2-4.2); Glucose 121 mg/dL (74-106); Potassium 3.5 mmol/L (3.5-5.1); Protein, Total 5.5 g/dL (6.4-8.2); Sodium Level 138 mmol/L (136-145)
[2019-01-03] MEDS: Multivitamins,Ther W-Minerals Tablet 1 TABLET PO (07:39)
[2019-01-03] MEDS: Calcium Carbonate 500 MG Tablet PO ×2 (07:39→16:12)
[2019-01-03] MEDS: Senna/Docusate Sodium 1 Tablet 2 TABLET PO ×2 (07:40→22:37)
[2019-01-03 07:43] LABS: Differential Comment SCANNED
[2019-01-03 08:34] VITALS: BP 117/62; PULSE 102; RESP 16; TEMP 37.2; O2SAT 93
[2019-01-03 16:51] VITALS: O2SAT 95
--- NOTE | 2019-01-03 17:52 | PN_ITS ---
Subjective: Patient was seen and examined today, she was admitted to the rehab unit at [facility] yesterday after undergoing ORIF of left hip fracture. Patient had a left hip percutaneous screw fixation performed on 01/01/2019-she sustained a fall at home while ambulating. Patient has no chronic medical problems and took no medications at home. Patient has no complaints this examiner today, she does not complain of any fever, chills, or severe hip pain. - Physical Exam General: Alert, Oriented x3, Cooperative, No apparent distress, Well developed, Well nourished HEENT: Atraumatic, PERRLA, EOMI, Normocephalic Oral: Moist Mucosa Neck: Supple, Trachea Midline, Thyroid Normal Size and Texture Lungs: Clear to auscultation, Normal air movement, No rhonchi, No wheeze, No rales Cardiovascular: Regular rate, Regular Rhythm, Normal S1, Normal S2, No murmurs, PMI Normal, No rub noted Abdomen: Bowel Sounds Present, Soft, Non Tender, Non-Distended Extremities: No clubbing, No cyanosis, Capillary Refill Less than 3 Seconds, - - Examination of the patient's left surgical scar reveals to be warm and dry with minimal edema, no discharge is noted from the area. Skin: No rashes Neurological: Cranial nerves II-XII grossly intact, Neuro grossly intact, Sensory exam intact to light touch and pain, Coordination normal Psych/Mental Status: Normal Affect, Appropriate, Alert and oriented to time, place, person, mood and affect Vital Signs Temp Pulse Resp BP Pulse Ox 98.9 F 102 H 16 117/62 95 01/03/19 08:34 01/03/19 08:34 01/03/19 08:34 01/03/19 08:34 01/03/19 16:51 Oxygen Delivery Method Room Air Weight: 60 kg Body Mass Index (BMI) 25.9 Laboratory Tests Past 24 Hrs 01/03/19 01/03/19 06:55 06:55 WBC 7.3 RBC 3.79 L Hgb 11.8 L Hct 36.1 L MCV 95.3 MCH 31.1 MCHC 32.7 RDW Std Deviation 42.5 RDW Coeff of Camille 12.1 Plt Count 149 L MPV 10.2 Immature Gran % (Auto) 0.300 Neut % (Auto) 79.2 H Lymph % (Auto) 8.2 L [place] % (Auto) 9.7 Eos % (Auto) 2.1 Baso % (Auto) 0.5 Absolute Neuts (auto) 5.8 Absolute Lymphs (auto) 0.60 L Absolute Nucleated RBC 0.00 Nucleated RBC % 0 Differential Comment SCANNED Sodium 138 Potassium 3.5 Chloride 106 Carbon Dioxide 26.0 Anion Gap 6 BUN 12 Creatinine 0.56 Estim Creat Clear Calc 39.67 Est GFR (MDRD) Af Amer 134 Est GFR (MDRD) Non-Af 111 BUN/Creatinine Ratio 21.6 H Glucose 121 H Calcium 7.8 L Total Bilirubin 0.50 AST 41 H ALT 29 Alkaline Phosphatase 60 Total Protein 5.5 L Albumin 2.6 L Globulin 2.9 Albumin/Globulin Ratio 0.9 Medical Necessity - Tobacco Use Smoking Status: Former smoker Assessment/Plan All Active Problems Hip fracture, left (Acute) #1 status post left hip fracture with left hip percutaneous screw fixation- postop day #3-patient appears medically stable at this time, no additional medication orders are needed at this time per medicine. Continue PT and OT. Code Visit Inpatient E&M: 79463 Subs Hosp L2
[2019-01-03 20:29] VITALS: BP 106/62; PULSE 102; RESP 20; TEMP 36.8; O2SAT 94
[2019-01-04] MEDS: HYDROcodone Bitartrate/Apap 5/325 Tablet PO ×3 (04:57→23:06)
--- NOTE | 2019-01-04 06:04 | NURSING ---
DR TORRES NOTIFIED OF PT'S PLATELET COUNT OF YESTERDAY. ADVISES OK TO ADMINISTER SCHEDULED LOVENOX INJECTION.
[2019-01-04] MEDS: Enoxaparin 40 MG/0.4 ML Syringe SC (06:08)
[2019-01-04 07:35] VITALS: O2SAT 92
[2019-01-04 08:00] VITALS: BP 122/68; PULSE 91; RESP 16; TEMP 36.6; O2SAT 97
[2019-01-04] MEDS: Calcium Carbonate 500 MG Tablet PO ×2 (09:26→17:05)
[2019-01-04] MEDS: Multivitamins,Ther W-Minerals Tablet 1 TABLET PO (09:27)
[2019-01-04] MEDS: Senna/Docusate Sodium 1 Tablet 2 TABLET PO (11:48)
[2019-01-04] MEDS: Magnesium Hydroxide 30 ML UDC PO (13:36)
[2019-01-04 22:00] VITALS: BP 115/63; PULSE 108; RESP 16; TEMP 37.1; O2SAT 94
[2019-01-05] MEDS: HYDROcodone Bitartrate/Apap 5/325 Tablet PO ×3 (05:27→20:12)
[2019-01-05] MEDS: Enoxaparin 40 MG/0.4 ML Syringe SC (05:28)
[2019-01-05 06:20] VITALS: O2SAT 95
[2019-01-05 07:03] VITALS: BP 122/61; PULSE 85; RESP 16; TEMP 36.8; O2SAT 95
[2019-01-05] MEDS: Multivitamins,Ther W-Minerals Tablet 1 TABLET PO (08:31)
[2019-01-05] MEDS: Calcium Carbonate 500 MG Tablet PO ×2 (08:31→17:25)
--- NOTE | 2019-01-05 09:32 | PN_ITS ---
Subjective: Patient is an 83-year-old lady who sustained a fall at home underwent left hip percutaneous screw fixation performed on 01/01/2019 subsequently transferred to the inpatient rehab unit with consultation placed to medicine Objective: GENERAL: cooperative HEENT: Atraumatic; EYES; Anicteric, NECK; supple, normal thyroid, RESPIRATORY: Diminished to auscultation bilaterally, CARDIOVASCULAR: Regular S1 S2, GI: soft, non-tender, normoactive bowel sounds, : No Renal angle tenderness; EXTREMITIES: No edema, no clubbing, NEURO: Awake; no lateralizing signs. SKIN: No Rash PSYCH; Normal affect Vitals/I&O's: Vital Signs Temp Pulse Resp BP Pulse Ox 98.3 F 85 16 122/61 H 95 01/05/19 07:03 01/05/19 07:03 01/05/19 07:03 01/05/19 07:03 01/05/19 07:03 Oxygen Delivery Method Room Air Weight: 60 kg Body Mass Index (BMI) 25.9 Current Medications Hydrocodone Bitart/Acetaminophen ([place] 5mg-325mg) 1 - 2 tablet PO Q6H PRN PRN PRN Reason: Mild-moderate pain (scale 1-5) Last Admin: 01/05/19 05:27 Dose: 2 tablet Documented by: Bisacodyl (Dulcolax) 10 mg RECTAL .PRN X 1 PRN PRN Reason: Constipation Calcium Carbonate ([facility]) [facility] Last Admin: 01/05/19 08:31 Dose: 500 mg Documented by: Enoxaparin Sodium (Lovenox) 40 mg SC DAILY@0600 [facility] Last Admin: 01/05/19 05:28 Dose: 40 mg Documented by: Lorazepam (Ativan) 0.5 mg PO QHS PRN PRN PRN Reason: Insomnia Magnesium Hydroxide (Milk Of Magnesia) 30 ml PO .PRN X 1 PRN PRN Reason: Constipation Last Admin: 01/04/19 13:36 Dose: 30 ml Documented by: Multivitamins/Minerals (Multivitamin With Minerals) 1 tablet PO DAILY@0800 [facility] Last Admin: 01/05/19 08:31 Dose: 1 tablet Documented by: Senna/Docusate Sodium (Senokot-S, Cesia-Colace) 2 tablet PO BID [facility] Last Admin: 01/05/19 08:09 Dose: Not Given Documented by: Medical Necessity - Tobacco Use Smoking Status: Former smoker Assessment/Plan All Active Problems Hip fracture, left (Acute) Patient is an 83-year-old lady who sustained a fall at home underwent left hip percutaneous screw fixation performed on 01/01/2019 subsequently transferred to the inpatient rehab unit with consultation placed to medicine 1. Status post ORIF for left hip fracture patient underwent eft hip percutaneous screw fixation performed on 01/01/2019 2. Mild anemia attributed to postop loss of swelling patient recent surgery no indication for blood transition at this point 3. DVT prophylaxis; patient is on Lovenox Active Medications Hydrocodone Bitart/Acetaminophen ([place] 5mg-325mg) 1 - 2 tablet PO Q6H PRN PRN PRN Reason: Mild-moderate pain (scale 1-5) Last Admin: 01/05/19 05:27 Dose: 2 tablet Documented by: Bisacodyl (Dulcolax) 10 mg RECTAL .PRN X 1 PRN PRN Reason: Constipation Calcium Carbonate ([facility]ums) [facility] Last Admin: 01/05/19 08:31 Dose: 500 mg Documented by: Enoxaparin Sodium (Lovenox) 40 mg SC DAILY@0600 [facility] Last Admin: 01/05/19 05:28 Dose: 40 mg Documented by: Lorazepam (Ativan) 0.5 mg PO QHS PRN PRN PRN Reason: Insomnia Magnesium Hydroxide (Milk Of Magnesia) 30 ml PO .PRN X 1 PRN PRN Reason: Constipation Last Admin: 01/04/19 13:36 Dose: 30 ml Documented by: Multivitamins/Minerals (Multivitamin With Minerals) 1 tablet PO DAILY@0800 [facility] Last Admin: 01/05/19 08:31 Dose: 1 tablet Documented by: Senna/Docusate Sodium (Senokot-S, Cesia-Colace) 2 tablet PO BID [facility] Last Admin: 01/05/19 08:09 Dose: Not Given Documented by: Code Visit Inpatient E&M: 30014 Subs Hosp L2
--- NOTE | 2019-01-05 12:41 | PCM.PN.NEU ---
Subjective: No issues overnight. Care discussed with the nursing staff. 83-year-old female with no significant PMH admitted to [facility] inpatient rehab unit on 01/01/2019 with debility post left hip ORIF, for greater than 3 hours therapy daily with a goal of returning back to her home at or near her prior functional independence. Patient presented to [facility] ED on 01/01/2019 status post fall and left hip pain, was found to have left hip fracture, underwent ORIF by Dr. Vanessa on 01/01/2019. Per orthopedics weightbearing as tolerated and DVT prophylaxis with enoxaparin. - Physical Exam General: Alert HEENT: Normocephalic Neck: Supple Lungs: Normal air movement Cardiovascular: Normal S1, Normal S2 Abdomen: Bowel Sounds Present Extremities: No cyanosis Neurological: Cranial nerves II-XII grossly intact, Deep Tendon Reflexes 2+/4 and Symmetrical, Neuro grossly intact, Motor Exam 5/5 strength throughout, Muscle tone normal, Sensory exam intact to light touch and pain, Coordination normal Psych/Mental Status: Normal Affect Vital Signs Temp Pulse Resp BP Pulse Ox 98.3 F 85 16 122/61 H 95 01/05/19 07:03 01/05/19 07:03 01/05/19 07:03 01/05/19 07:03 01/05/19 07:03 Oxygen Delivery Method Room Air Weight: 60 kg Body Mass Index (BMI) 25.9 Medical Necessity - Tobacco Use Smoking Status: Former smoker Assessment/Plan All Active Problems Hip fracture, left (Acute) 83-year-old female with no significant PMH admitted to [facility] inpatient rehab unit on 01/01/2019 with debility post left hip ORIF, for greater than 3 hours therapy daily with a goal of returning back to her home at or near her prior functional independence. Patient presented to [facility] ED on 01/01/2019 status post fall and left hip pain, was found to have left hip fracture, underwent ORIF by Dr. Vanessa on 01/01/2019. Per orthopedics weightbearing as tolerated and DVT prophylaxis with enoxaparin. Further management of left hip fracture and ORIF per orthopedic recommendation. Plan ?PT for gait stability ?OT for ADLs ?Bowel protocol ?Analgesics as needed ?Left hip fracture status post ORIF?done by Dr. Vanessa on 01/01/2019, weightbearing as tolerated per orthopedic recommendation. Further hip fracture and ORIF management as per orthopedic recommendation. ?GI/DVT prophylaxis-famotidine/Lovenox. Lovenox for DVT prophylaxis per orthopedics and hospitalist recommendation. SCDs and LILA hose ?Fall precautions ?Further medical management per hospitalist recommendations ?Follow with PCP and orthopedics as outpatient following discharge. Per orthopedics lulu removal in 2 weeks. This note was generated with [employer] dictation software. It may contain incorrect words, spelling, and punctuation that were not reviewed in checking the note before signing.
[2019-01-05 18:53] VITALS: BP 128/82; PULSE 105; RESP 16; TEMP 36.7; O2SAT 98
[2019-01-05 20:00] VITALS: PULSE 105; RESP 16; O2SAT 98
[2019-01-06] MEDS: HYDROcodone Bitartrate/Apap 5/325 Tablet PO ×3 (03:45→17:25)
[2019-01-06] MEDS: Enoxaparin 40 MG/0.4 ML Syringe SC (05:56)
--- NOTE | 2019-01-06 06:48 | NURSING ---
Reviewed and agree with LPNs fims and handoff
[2019-01-06] MEDS: Calcium Carbonate 500 MG Tablet PO ×2 (07:48→17:25)
[2019-01-06] MEDS: Multivitamins,Ther W-Minerals Tablet 1 TABLET PO (07:48)
[2019-01-06] MEDS: Senna/Docusate Sodium 1 Tablet 2 TABLET PO ×2 (07:48→21:17)
[2019-01-06 08:54] VITALS: BP 121/56; PULSE 85; RESP 16; TEMP 36.7; O2SAT 95
--- NOTE | 2019-01-06 13:32 | PN.NEURO_ITS ---
Subjective: No issues overnight. Care discussed with the nursing staff. - Physical Exam General: Alert HEENT: Normocephalic Neck: Supple Lungs: Normal air movement Cardiovascular: Normal S1, Normal S2 Abdomen: Bowel Sounds Present Extremities: No cyanosis Neurological: Cranial nerves II-XII grossly intact, Deep Tendon Reflexes 2+/4 and Symmetrical, Neuro grossly intact, Motor Exam 5/5 strength throughout, Muscle tone normal, Sensory exam intact to light touch and pain, Coordination normal Psych/Mental Status: Normal Affect Vital Signs Temp Pulse Resp BP Pulse Ox 98.1 F 85 16 121/56 H 95 01/06/19 08:54 01/06/19 08:54 01/06/19 08:54 01/06/19 08:54 01/06/19 08:54 Oxygen Delivery Method Room Air Weight: 60 kg Body Mass Index (BMI) 25.9 Intake and Output for Last 24 Hours 01/04/19 01/05/19 01/06/19 23:59 23:59 23:59 Intake Total 360 / 360 Balance 360 / 360 Medical Necessity - Tobacco Use Smoking Status: Former smoker Assessment/Plan All Active Problems Hip fracture, left (Acute) 83-year-old female with no significant PMH admitted to [facility] inpatient rehab unit on 01/01/2019 with debility post left hip ORIF, for greater than 3 hours therapy daily with a goal of returning back to her home at or near her prior functional independence. Patient presented to [facility] ED on 01/01/2019 status post fall and left hip pain, was found to have left hip fracture, underwent ORIF by Dr. Vanessa on 01/01/2019. Per orthopedics weightbearing as tolerated and DVT prophylaxis with enoxaparin. Further management of left hip fracture and ORIF per orthopedic recommendation. Plan ?PT for gait stability ?OT for ADLs ?Bowel protocol ?Analgesics as needed ?Left hip fracture status post ORIF?done by Dr. Vanessa on 01/01/2019, weightbearing as tolerated per orthopedic recommendation. Further hip fracture and ORIF management as per orthopedic recommendation. ?GI/DVT prophylaxis-famotidine/Lovenox. Lovenox for DVT prophylaxis per orthopedics and hospitalist recommendation. SCDs and LILA hose ?Fall precautions ?Further medical management per hospitalist recommendations ?Follow with PCP and orthopedics as outpatient following discharge. Per orthopedics lulu removal in 2 weeks. This note was generated with [employer] software. It may contain incorrect words, spelling, and punctuation that were not reviewed in checking the note before signing.
[2019-01-06 20:07] VITALS: BP 124/99; PULSE 103; RESP 16; TEMP 36.8; O2SAT 93
[2019-01-06 20:15] VITALS: PULSE 103; RESP 16; O2SAT 93
[2019-01-06] MEDS: Menthol/Lanolin/Calamine/Znox 113 GM Tube 1 APPLIC TOPICAL (21:21)
[2019-01-06] MEDS: guaiFENesin 600 MG Tablet PO (22:38)
--- NOTE | 2019-01-07 03:49 | NURSING ---
Reviewed and agree with LPNs fims and handoff
[2019-01-07] MEDS: Enoxaparin 40 MG/0.4 ML Syringe SC (05:15)
[2019-01-07] MEDS: Calcium Carbonate 500 MG Tablet PO ×2 (08:23→17:23)
[2019-01-07] MEDS: Multivitamins,Ther W-Minerals Tablet 1 TABLET PO (08:23)
[2019-01-07] MEDS: guaiFENesin 600 MG Tablet PO ×2 (08:24→21:14)
[2019-01-07] MEDS: HYDROcodone Bitartrate/Apap 5/325 Tablet PO ×3 (08:24→21:12)
[2019-01-07] MEDS: Menthol/Lanolin/Calamine/Znox 113 GM Tube 1 APPLIC TOPICAL ×2 (08:30→21:14)
[2019-01-07 08:43] VITALS: BP 146/67; PULSE 100; RESP 16; TEMP 36.9; O2SAT 95
--- NOTE | 2019-01-07 10:04 | PN_ITS ---
Subjective: Patient seen complains of having experienced 5 bowel movements this morning. She attributes this to her being on stool softeners her medications adjusted Objective: GENERAL: cooperative HEENT: Atraumatic; EYES; Anicteric, NECK; supple, normal thyroid, RESPIRATORY: Diminished to auscultation bilaterally, CARDIOVASCULAR: Regular S1 S2, GI: soft, non-tender, normoactive bowel sounds, : No Renal angle tenderness; EXTREMITIES: No edema, no clubbing, NEURO: Awake; no lateralizing signs. SKIN: No Rash PSYCH; Normal affect Vitals/I&O's: Vital Signs Temp Pulse Resp BP Pulse Ox 98.4 F 100 16 146/67 H 95 01/07/19 08:43 01/07/19 08:43 01/07/19 08:43 01/07/19 08:43 01/07/19 08:43 Oxygen Delivery Method Room Air Weight: 59 kg Body Mass Index (BMI) 25.9 Intake and Output for Last 24 Hours 01/05/19 01/06/19 01/07/19 23:59 23:59 23:59 Intake Total 360 / 360 Balance 360 / 360 Current Medications Hydrocodone Bitart/Acetaminophen (Freeman 5mg-325mg) 1 - 2 tablet PO Q6H PRN PRN PRN Reason: Mild-moderate pain (scale 1-5) Last Admin: 01/07/19 08:24 Dose: 2 tablet Documented by: Bisacodyl (Dulcolax) 10 mg RECTAL .PRN X 1 PRN PRN Reason: Constipation Calamine/Phenol (Calmoseptine Ointment) 1 applic TOPICAL BID [facility]; Protocol Last Admin: 01/07/19 08:30 Dose: 1 applicatio Documented by: Calcium [facility] ([facility]) [facility] Last Admin: 01/07/19 08:23 Dose: 500 mg Documented by: Enoxaparin Sodium (Lovenox) 40 mg SC DAILY@0600 [facility] Last Admin: 01/07/19 05:15 Dose: 40 mg Documented by: Guaifenesin (Mucinex) 600 mg PO BID [facility] Last Admin: 01/07/19 08:24 Dose: 600 mg Documented by: Lorazepam (Ativan) 0.5 mg PO QHS PRN PRN PRN Reason: Insomnia Magnesium Hydroxide (Milk Of Magnesia) 30 ml PO .PRN X 1 PRN PRN Reason: Constipation Last Admin: 01/04/19 13:36 Dose: 30 ml Documented by: Multivitamins/Minerals (Multivitamin With Minerals) 1 tablet PO DAILY@0800 [facility] Last Admin: 01/07/19 08:23 Dose: 1 tablet Documented by: Senna/Docusate Sodium (Senokot-S, Cesia-Colace) 2 tablet PO BID [facility] Last Admin: 01/07/19 06:30 Dose: Not Given Documented by: Medical Necessity - Tobacco Use Smoking Status: Former smoker Assessment/Plan All Active Problems Hip fracture, left (Acute) Patient is an 83-year-old lady who sustained a fall at home underwent left hip percutaneous screw fixation performed on 01/01/2019 subsequently transferred to the inpatient rehab unit with consultation placed to medicine 1. Status post ORIF for left hip fracture patient underwent eft hip percutaneous screw fixation performed on 01/01/2019 2. Mild anemia attributed to postop loss of swelling patient recent surgery no indication for blood transition at this point 3. DVT prophylaxis; patient is on Lovenox 4. Loose bowel movement attributed to patient stool softeners adjusted meds Code Visit Inpatient E&M: 09280 Subs Hosp L2
--- NOTE | 2019-01-07 14:09 | PN.NEURO_ITS ---
Subjective: Issues overnight. Care discussed with the nursing staff. - Physical Exam General: Alert HEENT: Normocephalic Neck: Supple Lungs: Normal air movement Cardiovascular: Normal S1, Normal S2 Abdomen: Bowel Sounds Present Extremities: No cyanosis Neurological: - - Cranial nerves II-XII grossly intact, Deep Tendon Reflexes 2+/4 and Symmetrical, Neuro grossly intact, Motor Exam 5/5 strength throughout, Muscle tone normal, Sensory exam intact to light touch and pain, Coordination normal Psych/Mental Status: Normal Affect Vital Signs Temp Pulse Resp BP Pulse Ox 98.4 F 100 16 146/67 H 95 01/07/19 08:43 01/07/19 08:43 01/07/19 08:43 01/07/19 08:43 01/07/19 08:43 Oxygen Delivery Method Room Air Weight: 59 kg Body Mass Index (BMI) 25.9 Intake and Output for Last 24 Hours 01/05/19 01/06/19 01/07/19 23:59 23:59 23:59 Intake Total 360 / 360 Balance 360 / 360 Medical Necessity - Tobacco Use Smoking Status: Former smoker Assessment/Plan All Active Problems Hip fracture, left (Acute) 83-year-old female with no significant PMH admitted to [facility] inpatient rehab unit on 01/01/2019 with debility post left hip ORIF, for greater than 3 hours therapy daily with a goal of returning back to her home at or near her prior functional independence. Patient presented to [facility] ED on 01/01/2019 status post fall and left hip pain, was found to have left hip fracture, underwent ORIF by Dr. Vanessa on 01/01/2019. Per orthopedics weightbearing as tolerated and DVT prophylaxis with enoxaparin. Further management of left hip fracture and ORIF per orthopedic recommendation. Plan ?PT for gait stability ?OT for ADLs ?Bowel protocol ?Analgesics as needed ?Left hip fracture status post ORIF?done by Dr. Vanessa on 01/01/2019, weightbearing as tolerated per orthopedic recommendation. Further hip fracture and ORIF management as per orthopedic recommendation. ?GI/DVT prophylaxis-famotidine/Lovenox. Lovenox for DVT prophylaxis per orthopedics and hospitalist recommendation. SCDs and LILA hose ?Fall precautions ?Further medical management per hospitalist recommendations ?Follow with PCP and orthopedics as outpatient following discharge. Per orthopedics lulu removal in 2 weeks. This note was generated with [employer] dictation software. It may contain incorrect words, spelling, and punctuation that were not reviewed in checking the note before signing.
[2019-01-07 20:25] VITALS: BP 128/72; PULSE 98; RESP 16; TEMP 36.8; O2SAT 96
[2019-01-07 21:16] VITALS: PULSE 98; RESP 16
[2019-01-08] MEDS: Enoxaparin 40 MG/0.4 ML Syringe SC (05:55)
[2019-01-08] MEDS: HYDROcodone Bitartrate/Apap 5/325 Tablet PO ×3 (06:06→17:46)
[2019-01-08 08:14] VITALS: BP 120/64; PULSE 79; RESP 16; TEMP 36.9; O2SAT 93
[2019-01-08] MEDS: guaiFENesin 600 MG Tablet PO ×2 (08:39→21:11)
[2019-01-08] MEDS: Calcium Carbonate 500 MG Tablet PO ×2 (08:39→17:46)
[2019-01-08] MEDS: Multivitamins,Ther W-Minerals Tablet 1 TABLET PO (08:39)
[2019-01-08] MEDS: Menthol/Lanolin/Calamine/Znox 113 GM Tube 1 APPLIC TOPICAL ×2 (08:40→21:17)
--- NOTE | 2019-01-08 09:21 | PCM.PN.NEU ---
Subjective: Per nursing no issues overnight. Noted occasional Apical irregularity. 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 Per patient, at times can feel palpitations, SOB and chest tightness. Denies SOB, chest pain or pressure, dizziness, or lightheadedness at this time. Will defer to outpatient cardiology. Staff team meeting today. Further therapy details per PT/OT notes. All questions area answered. - Physical Exam General: Alert, Oriented x3, Cooperative HEENT: Atraumatic, PERRLA Oral: Moist Mucosa Neck: Supple, No JVD Lungs: Clear to auscultation, Normal air movement Cardiovascular: Irregular Rate - occassional Abdomen: Bowel Sounds Present, Soft, Non Tender Extremities: No clubbing, No cyanosis Skin: Incision - Echo intact to left hip without surrounding redness or drng Neurological: Cranial nerves II-XII grossly intact, Deep Tendon Reflexes 2+/4 and Symmetrical, Motor Exam 5/5 strength throughout Psych/Mental Status: Normal Affect, Appropriate, Alert and oriented to time, place, person, mood and affect Vital Signs Temp Pulse Resp BP Pulse Ox 98.4 F 79 16 120/64 93 01/08/19 08:14 01/08/19 08:14 01/08/19 08:14 01/08/19 08:14 01/08/19 08:14 Oxygen Delivery Method Room Air Weight: 59 kg Body Mass Index (BMI) 25.9 Intake and Output for Last 24 Hours 01/06/19 01/07/19 01/08/19 23:59 23:59 23:59 Intake Total 360 / 360 Balance 360 / 360 Medical Necessity - Tobacco Use Smoking Status: Former smoker Assessment/Plan All Active Problems Hip fracture, left (Acute) 83-year-old female with no significant PMH admitted to [facility] inpatient rehab unit on 01/01/2019 with debility post left hip ORIF, for greater than 3 hours therapy daily with a goal of returning back to her home at or near her prior functional independence. Patient presented to [facility] ED on 01/01/2019 status post fall and left hip pain, was found to have left hip fracture, underwent ORIF by Dr. Vanessa on 01/01/2019. Per orthopedics weightbearing as tolerated and DVT prophylaxis with enoxaparin. Further management of left hip fracture and ORIF per orthopedic recommendation. Plan ?PT for gait stability ?OT for ADLs ?Bowel protocol ?Analgesics as needed ?Left hip fracture status post ORIF?done by Dr. Vanessa on 01/01/2019, weightbearing as tolerated per orthopedic recommendation. D/C lulu on 01/15/19. ?GI/DVT prophylaxis-famotidine/Lovenox. Lovenox for DVT prophylaxis per orthopedics and hospitalist recommendation. SCDs and LILA hose ?Fall precautions ?Further medical management per hospitalist recommendations ?Follow with PCP and orthopedics, cardiology as outpatient following discharge.
--- NOTE | 2019-01-08 10:53 | CASEMGMT ---
Addendum entered by Ana Maria Villalobos 01/08/19 11:11: No ST but SN. Original Note: Social Work IDT met with patient and neighbor for Team Meeting. Patient progressing well in therapy. Following hip precautions and using adaptive equipment, walking 5 steps CGA. Pt requesting to discharge prior to Medicare ELOS. Pt will notify SW tomorrow if pt wants to DC prior to getting lulu removed 01/15. Referred to [facility] for petite FWW w/basket, and [facility] for PT/OT/ST. Will continue to follow for DC date. CANDACE ValleW
[2019-01-08] MEDS: Senna/Docusate Sodium 1 Tablet 2 TABLET PO (21:11)
[2019-01-08 21:19] VITALS: BP 122/74; PULSE 81; RESP 16; TEMP 36.7; O2SAT 96
--- NOTE | 2019-01-09 02:20 | NURSING ---
REVIEWED AND AGREE WITH COMPENSATION ADVISOR'S FIM AND HANDOFF CHARTING.
[2019-01-09] MEDS: HYDROcodone Bitartrate/Apap 5/325 Tablet PO ×4 (03:10→21:59)
[2019-01-09] MEDS: Enoxaparin 40 MG/0.4 ML Syringe SC (06:39)
[2019-01-09] MEDS: Senna/Docusate Sodium 1 Tablet 2 TABLET PO ×2 (07:37→21:58)
[2019-01-09] MEDS: Multivitamins,Ther W-Minerals Tablet 1 TABLET PO (07:37)
[2019-01-09] MEDS: guaiFENesin 600 MG Tablet PO ×2 (07:37→21:58)
[2019-01-09] MEDS: Menthol/Lanolin/Calamine/Znox 113 GM Tube 1 APPLIC TOPICAL ×2 (07:38→21:58)
[2019-01-09] MEDS: Calcium Carbonate 500 MG Tablet PO ×2 (07:38→17:32)
[2019-01-09 07:49] VITALS: BP 114/63; PULSE 71; RESP 18; TEMP 36.8; O2SAT 93
--- NOTE | 2019-01-09 09:58 | PN_ITS ---
Subjective: Patient seen participating in physical therapy complains of left thigh pain Objective: GENERAL: cooperative HEENT: Atraumatic; EYES; Anicteric, NECK; supple, normal thyroid, RESPIRATORY: Diminished to auscultation bilaterally, CARDIOVASCULAR: Regular S1 S2, GI: soft, non-tender, normoactive bowel sounds, : No Renal angle tenderness; EXTREMITIES: No edema, no clubbing, NEURO: Awake; no lateralizing signs. SKIN: No Rash PSYCH; Normal affect Vitals/I&O's: Vital Signs Temp Pulse Resp BP Pulse Ox 98.2 F 71 18 114/63 93 01/09/19 07:49 01/09/19 07:49 01/09/19 07:49 01/09/19 07:49 01/09/19 07:49 Oxygen Delivery Method Room Air Weight: 59 kg Body Mass Index (BMI) 25.9 Current Medications Hydrocodone Bitart/Acetaminophen (Bertram 5mg-325mg) 1 - 2 tablet PO Q4H PRN PRN PRN Reason: Mild-moderate pain (scale 1-5) Last Admin: 01/09/19 07:37 Dose: 2 tablet Documented by: Bisacodyl (Dulcolax) 10 mg RECTAL .PRN X 1 PRN PRN Reason: Constipation Calamine/Phenol (Calmoseptine Ointment) 1 applic TOPICAL BID [facility]; Protocol Last Admin: 01/09/19 07:38 Dose: 1 applicatio Documented by: Calcium Carbonate (Tums) [facility] Last Admin: 01/09/19 07:38 Dose: 500 mg Documented by: Enoxaparin Sodium (Lovenox) 40 mg SC DAILY@0600 [facility] Last Admin: 01/09/19 06:39 Dose: 40 mg Documented by: Guaifenesin (Mucinex) 600 mg PO BID [facility] Last Admin: 01/09/19 07:37 Dose: 600 mg Documented by: Lorazepam (Ativan) 0.5 mg PO QHS PRN PRN PRN Reason: Insomnia Magnesium Hydroxide (Milk Of Magnesia) 30 ml PO .PRN X 1 PRN PRN Reason: Constipation Last Admin: 01/04/19 13:36 Dose: 30 ml Documented by: Multivitamins/Minerals (Multivitamin With Minerals) 1 tablet PO DAILY@0800 [facility] Last Admin: 01/09/19 07:37 Dose: 1 tablet Documented by: Nutritional Formula (Lactose Free) (Ensure Enlive) 120 ml PO 4X/DAY [facility] Senna/Docusate Sodium (Senokot-S, Cesia-Colace) 2 tablet PO BID [facility] Last Admin: 01/09/19 07:37 Dose: 2 tablet Documented by: Medical Necessity - Tobacco Use Smoking Status: Former smoker Assessment/Plan All Active Problems Hip fracture, left (Acute) Patient is an 83-year-old lady who sustained a fall at home underwent left hip p ercutaneous screw fixation performed on 01/01/2019 subsequently transferred to the inpatient rehab unit with consultation placed to medicine 1. Status post ORIF for left hip fracture patient underwent eft hip percutaneous screw fixation performed on 01/01/2019 2. Mild anemia attributed to postop loss of swelling patient recent surgery no indication for blood transition at this point 3. DVT prophylaxis; patient is on Lovenox 4. Loose bowel movement attributed to patient stool softeners adjusted meds 5. Left thigh pain venous duplex ordered to rule out DVT Code Visit Inpatient E&M: 71234 Subs Hosp L2
--- NOTE | 2019-01-09 09:59 | VDLE_ITS ---
Reason For Study: pain RIGHT LEFT CFV is compressible, spontaneous, phasic, GSV is normal. competent and demonstrates normal CFV is compressible, spontaneous, phasic, augmentation. competent, and demonstrates normal Procedure augmentation. Exam performed portable in patient room. FV is compressible, spontaneous, phasic, The exam was diagnostic. competent and demonstrates normal A preliminary report was called and/or faxed augmentation. to the pt's RN. POP V is compressible, spontaneous, phasic, competent and demonstrates normal augmentation. T/P Trunk is compressible. PTV is compressible. LT PerV is compressible. Soleus V is dilated and noncompressible. Interpretation Summary Acute deep vein thrombosis is noted in the left soleus vein. The remainder of the left lower extremity deep venous system is patent and compressible. Valvular competence appears intact within the proximal deep venous system on the left . The left greater saphenous vein appears patent and compressible segmentally. Ordering Physician: Alejandro Andrew Performed By: Yash Lamb RVArun
--- NOTE | 2019-01-09 10:22 | CASEMGMT ---
Social Work Spoke with patient about discharge date - pt would like to DC Friday 01/12. IDT is agreeable. FWW and HHC ordered and notified of DC date. CANDACE ValleW
--- NOTE | 2019-01-09 10:55 | PCM.PN.NEU ---
Subjective: Per nursing , no issues overnight. Patient continues to tolerate therapies and pain is controlled. Discharge home on 01/12/19. - Physical Exam General: Alert, Oriented x3, Cooperative HEENT: Atraumatic, PERRLA Oral: Moist Mucosa Neck: Supple, No JVD Lungs: Clear to auscultation, Normal air movement Cardiovascular: Irregular Rate - occassional Abdomen: Bowel Sounds Present, Soft, Non Tender Extremities: No clubbing, No cyanosis, No edema Skin: Incision - lulu intact to left hip, no redness or drng noted Neurological: Cranial nerves II-XII grossly intact, Deep Tendon Reflexes 2+/4 and Symmetrical, Motor Exam 5/5 strength throughout Psych/Mental Status: Normal Affect, Appropriate, Alert and oriented to time, place, person, mood and affect Vital Signs Temp Pulse Resp BP Pulse Ox 98.2 F 71 18 114/63 93 01/09/19 07:49 01/09/19 07:49 01/09/19 07:49 01/09/19 07:49 01/09/19 07:49 Oxygen Delivery Method Room Air Weight: 59 kg Body Mass Index (BMI) 25.9 Medical Necessity - Tobacco Use Smoking Status: Former smoker Assessment/Plan All Active Problems Hip fracture, left (Acute) 83-year-old female with no significant PMH admitted to [facility] inpatient rehab unit on 01/01/2019 with debility post left hip ORIF, for greater than 3 hours therapy daily with a goal of returning back to her home at or near her prior functional independence. Patient presented to [facility] ED on 01/01/2019 status post fall and left hip pain, was found to have left hip fracture, underwent ORIF by Dr. Vanessa on 01/01/2019. Per orthopedics weightbearing as tolerated and DVT prophylaxis with enoxaparin. Further management of left hip fracture and ORIF per orthopedic recommendation. Plan ?PT for gait stability ?OT for ADLs ?Bowel protocol ?Analgesics as needed ?Left hip fracture status post ORIF?done by Dr. Vanessa on 01/01/2019, weightbearing as tolerated per orthopedic recommendation. D/C lulu on 01/15/19. ?GI/DVT prophylaxis-famotidine/Lovenox. Lovenox for DVT prophylaxis per orthopedics and hospitalist recommendation. SCDs and LILA hose ?Fall precautions ?Further medical management per hospitalist recommendations ?Follow with PCP and orthopedics, cardiology as outpatient following discharge. D/C home on 01/12/19 with home PT/OT and nursing.
[2019-01-09 19:30] VITALS: BP 124/58; PULSE 93; RESP 16; TEMP 36.8; O2SAT 96
[2019-01-09 22:00] VITALS: PULSE 93; RESP 16
[2019-01-10] MEDS: Enoxaparin 40 MG/0.4 ML Syringe SC (06:00)
[2019-01-10] MEDS: Multivitamins,Ther W-Minerals Tablet 1 TABLET PO (07:45)
[2019-01-10] MEDS: Calcium Carbonate 500 MG Tablet PO ×2 (07:45→16:42)
[2019-01-10] MEDS: HYDROcodone Bitartrate/Apap 5/325 Tablet PO ×3 (07:45→21:58)
[2019-01-10] MEDS: guaiFENesin 600 MG Tablet PO ×2 (07:45→21:59)
[2019-01-10] MEDS: Menthol/Lanolin/Calamine/Znox 113 GM Tube 1 APPLIC TOPICAL ×2 (07:47→22:00)
[2019-01-10 08:00] VITALS: BP 111/75; PULSE 69; RESP 16; TEMP 36.6; O2SAT 96
[2019-01-10 19:33] VITALS: BP 110/68; PULSE 73; RESP 16; TEMP 36.8; O2SAT 96
[2019-01-10] MEDS: Senna/Docusate Sodium 1 Tablet 2 TABLET PO (21:59)
[2019-01-10 22:00] VITALS: RESP 17
[2019-01-10] MEDS: APIXABAN 5 MG TABLET PO (22:00)
[2019-01-11] MEDS: Multivitamins,Ther W-Minerals Tablet 1 TABLET PO (07:50)
[2019-01-11] MEDS: APIXABAN 5 MG TABLET PO ×2 (07:50→22:02)
[2019-01-11] MEDS: guaiFENesin 600 MG Tablet PO ×2 (07:50→22:02)
[2019-01-11] MEDS: Menthol/Lanolin/Calamine/Znox 113 GM Tube 1 APPLIC TOPICAL ×2 (07:51→22:03)
[2019-01-11] MEDS: Calcium Carbonate 500 MG Tablet PO ×2 (07:51→17:00)
[2019-01-11 09:18] VITALS: BP 113/66; PULSE 81; RESP 16; TEMP 36.8; O2SAT 95
--- NOTE | 2019-01-11 10:10 | PN_ITS ---
Subjective: Patient was diagnosed with acute deep vein thrombosis involving the left soleus vein noted on systemic anticoagulation with Eliquis with plans to treat for 3 months Objective: GENERAL: cooperative HEENT: Atraumatic; EYES; Anicteric, NECK; supple, normal thyroid, RESPIRATORY: Diminished to auscultation bilaterally, CARDIOVASCULAR: Regular S1 S2, GI: soft, non-tender, normoactive bowel sounds, : No Renal angle tenderness; EXTREMITIES: No edema, no clubbing, NEURO: Awake; no lateralizing signs. SKIN: No Rash PSYCH; Normal affect Vitals/I&O's: Vital Signs Temp Pulse Resp BP Pulse Ox 98.3 F 81 16 113/66 95 01/11/19 09:18 01/11/19 09:18 01/11/19 09:18 01/11/19 09:18 01/11/19 09:18 Oxygen Delivery Method Room Air Weight: 59 kg Body Mass Index (BMI) 25.9 Intake and Output for Last 24 Hours 01/09/19 01/10/19 01/11/19 23:59 23:59 23:59 Intake Total 720 / 720 360 / 360 Balance 720 / 720 360 / 360 Current Medications Hydrocodone Bitart/Acetaminophen ([place] 5mg-325mg) 1 - 2 tablet PO Q4H PRN PRN PRN Reason: Mild-moderate pain (scale 1-5) Last Admin: 01/10/19 21:58 Dose: 2 tablet Documented by: Apixaban (Eliquis) 5 mg PO BID [facility] Last Admin: 01/11/19 07:50 Dose: 5 mg Documented by: Bisacodyl (Dulcolax) 10 mg RECTAL .PRN X 1 PRN PRN Reason: Constipation Calamine/Phenol (Calmoseptine Ointment) 1 applic TOPICAL BID [facility]; Protocol Last Admin: 01/11/19 07:51 Dose: 1 applicatio Documented by: Calcium Carbonate (Tums) [facility] Last Admin: 01/11/19 07:51 Dose: 500 mg Documented by: Guaifenesin (Mucinex) 600 mg PO BID [facility] Last Admin: 01/11/19 07:50 Dose: 600 mg Documented by: Lorazepam (Ativan) 0.5 mg PO QHS PRN PRN PRN Reason: Insomnia Magnesium Hydroxide (Milk Of Magnesia) 30 ml PO .PRN X 1 PRN PRN Reason: Constipation Last Admin: 01/04/19 13:36 Dose: 30 ml Documented by: Multivitamins/Minerals (Multivitamin With Minerals) 1 tablet PO DAILY@0800 [facility] Last Admin: 01/11/19 07:50 Dose: 1 tablet Documented by: Nutritional Formula (Lactose Free) (Ensure Enlive) 120 ml PO 4X/DAY [facility] Last Admin: 01/11/19 07:54 Dose: 120 ml Documented by: Senna/Docusate Sodium (Senokot-S, Cesia-Colace) 2 tablet PO BID [facility] Last Admin: 01/11/19 08:11 Dose: Not Given Documented by: Medical Necessity - Tobacco Use Smoking Status: Former smoker Assessment/Plan All Active Problems Hip fracture, left (Acute) Patient is an 83-year-old lady who sustained a fall at home underwent left hip percutaneous screw fixation performed on 01/01/2019 subsequently transferred to the inpatient rehab unit with consultation placed to medicine 1. Status post ORIF for left hip fracture patient underwent eft hip percutaneous screw fixation performed on 01/01/2019 2. Mild anemia attributed to postop loss of swelling patient recent surgery no indication for blood transition at this point 3. DVT prophylaxis; patient is on Lovenox 4. Loose bowel movement attributed to patient stool softeners adjusted meds 5. Acute deep vein thrombosis involving the left soleus vein noted on systemic anticoagulation with Eliquis with plans to treat for 3 months Reason For Study: pain RIGHT LEFT CFV is compressible, spontaneous, phasic, GSV is normal. competent and demonstrates normal CFV is compressible, spontaneous, phasic, augmentation. competent, and demonstrates normal Procedure augmentation. Exam performed portable in patient room. FV is compressible, spontaneous, phasic, The exam was diagnostic. competent and demonstrates normal A preliminary report was called and/or faxed augmentation. to the pt's RN. POP V is compressible, spontaneous, phasic, competent and demonstrates normal augmentation. T/P Trunk is compressible. PTV is compressible. LT PerV is compressible. Soleus V is dilated and noncompressible. Interpretation Summary Acute deep vein thrombosis is noted in the left soleus vein. The remainder of the left lower extremity deep venous system is patent and compressible. Valvular competence appears intact within the proximal deep venous system on the left . The left greater saphenous vein appears patent and compressible segmentally. Code Visit Inpatient E&M: 90116 Subs Hosp L2
[2019-01-11] MEDS: HYDROcodone Bitartrate/Apap 5/325 Tablet PO ×2 (14:04→22:01)
[2019-01-11 19:10] VITALS: BP 117/63; PULSE 92; RESP 16; TEMP 36.8; O2SAT 97
[2019-01-11 21:49] VITALS: PULSE 92; RESP 16; O2SAT 94
[2019-01-12 07:10] VITALS: BP 114/64; PULSE 84; RESP 17; TEMP 36.6; O2SAT 95
[2019-01-12] MEDS: HYDROcodone Bitartrate/Apap 5/325 Tablet PO (08:50)
[2019-01-12] MEDS: Menthol/Lanolin/Calamine/Znox 113 GM Tube 1 APPLIC TOPICAL (08:51)
[2019-01-12] MEDS: APIXABAN 5 MG TABLET PO (08:51)
[2019-01-12] MEDS: guaiFENesin 600 MG Tablet PO (08:51)
[2019-01-12] MEDS: Multivitamins,Ther W-Minerals Tablet 1 TABLET PO (08:51)
[2019-01-12] MEDS: Calcium Carbonate 500 MG Tablet PO (08:51)
[2019-01-12 09:02] VITALS: BP 114/64; PULSE 84; RESP 16; TEMP 36.6; O2SAT 95
--- NOTE | 2019-01-12 09:24 | PCM.DC ---
- Discharge Diagnoses Reason(s) for Visit for Discharge Instructions: Left hip fracture status post ORIF You will use the following diet at home:: No restrictions, Regular Your food should be the consistency of: Regular Your liquids should be the consistency of: Regular/Thin Discharge Activity: Return to Normal Activity, May Not Drive, May Shower, Use Walker Weight Bearing Status: Weight bearing as tolerated Call your doctor if your incision/area has: Continuous Slow Oozing, Sudden Increased Bleeding, Increased Pain/ Swelling, Increased Redness, Foul Smelling Discharge, Swelling at the incision site Call your doctor if you observe: Fever of 101 or Higher, Coldness, Increased Pain, Numbness or Tingling, Change in Color, Inability to urinate, Inability to have a bowel movement, Shortness of breath, Dizziness, Fainting spells, Swelling in the ankles, Chest pain, Prolonged hiccoughing, Increased palpitations (irregular heartbeat), Calf discomfort, Uncontrolled pain Cleanse incision/area with: Soap & Water Pending Tests on Discharge: Take Eliquis 5 mg twice a day for 3 months for Left Soleus deep vein thrombosis. Follow up with your primary care doctor for further management. Cornelius to left hip will be discontinued at Dr. Vanessa office on 01/15/2019 Allergies/Adverse Reactions: Allergies Sulfa (Sulfonamide Antibiotics) Adverse Reaction (Verified 01/01/19 02:14) Unknown Medications to take at Discharge Vit D3/Folic Acid/B2/B6/B12 [Folgard Tablet] 1 ea PO BID 01/01/19 Apixaban [Eliquis] 5 mg PO BID #60 tab 01/12/19 Guaifenesin [Mucinex] 600 mg PO BID #60 tab 01/12/19 Hydrocodone Bitart/Apap 5-325 [[place] 5/325] 1 - 2 tablet PO Q6H PRN PRN 5 Days #40 tablet 01/12/19 Multivitamins,Ther W-Minerals [Multivitamin With Minerals] 1 tablet PO DAILY@0800 tablet 01/12/19 The following prescriptions were given: Apixaban [Eliquis] 5 mg PO BID #60 tab Transmission Status: Pending to [facility] Guaifenesin [Mucinex] 600 mg PO BID #60 tab Transmission Status: Pending to [facility] Hydrocodone Bitart/Apap 5-325 [[place] 5/325] 1 - 2 tablet PO Q6H PRN PRN 5 Days #40 tablet PRN Reason: Mild-moderate pain (scale 1-5) Transmission Status: Sent to [facility] Primary Care Physician: Bunny Diaz DO [Primary Care Provider] - Test Results: Test results from this visit will be discussed in further detail at your follow-up appointment, if applicable. Please Follow Up With: Bunny Diaz DO When: 01/30/2019 @ 11:05 am Please Follow Up With: Dr. Azul Vanessa When: 01/15/2019 @ 10:00 am Please Follow Up With: Antoine Yan MD When: 01/19/2019 @ 2:30 pm Proposed Discharge Date: 01/12/19
--- NOTE | 2019-01-12 10:13 | DS.PCM_ITS ---
Rehab Discharge Summary DATE OF ADMISSION: 01/02/19 DATE OF DISCHARGE: 01/12/2019 - Rehab Diagnosis Left hip fracture status post ORIF Subjective: Per nursing no issue overnight. Patient will be discharge home today with home health PT/OT and nursing. Duplex studay was done on 01/09/2019 which showed a left soleus DVT and was started on eliquis 5 mg bid on 01/10/19 and hospitalist recommended treatment x 3 months. Pain is controlled, denies further questions or concerns. - Physical Exam General: Alert, Oriented x3, Cooperative HEENT: Atraumatic, PERRLA Oral: Moist Mucosa Neck: Supple, No JVD Lungs: Clear to auscultation, Normal air movement Cardiovascular: Irregular Rate - occassional Abdomen: Bowel Sounds Present, Soft, Non Tender Extremities: No clubbing, No cyanosis, No edema Skin: Incision - shelbi intact to left hip, without redness or drng Neurological: Cranial nerves II-XII grossly intact, Deep Tendon Reflexes 2+/4 and Symmetrical, Motor Exam 5/5 strength throughout Psych/Mental Status: Normal Affect, Appropriate, Alert and oriented to time, place, person, mood and affect Vital Signs Temp Pulse Resp BP Pulse Ox 97.9 F 84 16 114/64 95 01/12/19 09:02 01/12/19 09:02 01/12/19 09:02 01/12/19 09:02 01/12/19 09:02 Oxygen Delivery Method Room Air Weight: 59 kg Body Mass Index (BMI) 25.9 Intake and Output for Last 24 Hours 01/10/19 01/11/19 01/12/19 23:59 23:59 23:59 Intake Total 720 / 720 600 / 600 180 / 180 Balance 720 / 720 600 / 600 180 / 180 Discharge Diet: No Restrictions Discharge Activity: Return to Normal Activity, May Not Drive, May Shower, Use Walker Weight Bearing Status: Weight bearing as tolerated Call your doctor if your incision/area has: Continuous Slow Oozing, Sudden Increased Bleeding, Increased Pain/ Swelling, Increased Redness, Foul Smelling Discharge, Swelling at the incision site Call your doctor if you observe: Fever of 101 or Higher, Coldness, Increased Pain, Numbness or Tingling, Change in Color, Inability to urinate, Inability to have a bowel movement, Shortness of breath, Dizziness, Fainting spells, Swelling in the ankles, Chest pain, Prolonged hiccoughing, Increased palpitations (irregular heartbeat), Calf discomfort, Uncontrolled pain Cleanse incision/area with: Soap & Water Home Medications: Medications to take at Discharge Vit D3/Folic Acid/B2/B6/B12 [Folgard Tablet] 1 ea PO BID 01/01/19 Apixaban [Eliquis] 5 mg PO BID #60 tab 01/12/19 Famotidine [Pepcid] 20 mg PO DAILY #30 tab 01/12/19 Guaifenesin [Mucinex] 600 mg PO BID #60 tab 01/12/19 Hydrocodone Bitart/Apap 5-325 [[place] 5/325] 1 - 2 tab PO Q6H PRN PRN 5 Days #40 tab 01/12/19 Multivitamins,Ther W-Minerals [Multivitamin With Minerals] 1 tab PO DAILY@0800 tab 01/12/19 Following Prescrptions Were Given to Patient: Apixaban [Eliquis] 5 mg PO BID #60 tab Transmission Status: Received by [facility] Guaifenesin [Mucinex] 600 mg PO BID #60 tab Transmission Status: Received by [facility] Hydrocodone Bitart/Apap 5-325 [[place] 5/325] 1 - 2 tab PO Q6H PRN PRN 5 Days #40 tab PRN Reason: Mild-moderate pain (scale 1-5) Transmission Status: Received by [facility] Famotidine [Pepcid] 20 mg PO DAILY #30 tab Transmission Status: Sent to [facility] Primary Care Physician: Bunny Diaz DO [Primary Care Provider] - Please follow up with your Primary Care Physician in: 2 weeks Please Follow Up With: Bunny Diaz DO When: 01/30/2019 @ 11:05 am Please Follow Up With: Dr. Azul Vanessa When: 01/15/2019 @ 10:00 am Please Follow Up With: Antoine Yan MD When: 01/19/2019 @ 2:30 pm Please Follow Up With: [facility] - PT/OT/Nursing Additional Instructions: Take Eliquis 5 mg twice a day for 3 months for Left Soleus deep vein thrombosis. Follow up with your primary care doctor for further management. Shelbi to left hip will be discontinued at Dr. Vanessa office on 01/15/2019 Rehab Course 83-year-old female with no significant PMH admitted to [facility] inpatient rehab unit on 01/01/2019 with debility post left hip ORIF, for greater than 3 hours therapy daily with a goal of returning back to her home at or near her prior functional independence. Patient presented to [facility] ED on 01/01/2019 status post fall and left hip pain, was found to have left hip fracture, underwent ORIF by Dr. Vanessa on 01/01/2019. Per orthopedics, weightbearing as tolerated and DVT prophylaxis with enoxaparin. During rehab course a duplex study was completed on 01/09/2019 to bilateral lower extremities, which showed a left soleus DVT. Patient was started on Eliquis 5 mg bid on 01/10/2019 for 3 months and home with Pepcid for GI prevention. Lovenox was discontinued. Left hip incision without signs or symptoms of infection. Shelbi to be discontinued at DR. Vanessa follow up appt on 01/15/19. Patient increased her strength and mobility to return home. Patient will be discharged home on 01/12/2019 with [facility] - PT/OT/Nursing. Meaningful Use Info Meaningful Use Diagnoses (Choose all that apply): VTE - Duplex study 01/09/19- Left Soleus - VTE Anticoag overlap given w/in hospital stay or rx'd at dc?: Yes Pt receive overlap for 5 days?: Yes
[2019-01-12 13:30] VITALS: BP 114/64; PULSE 84; RESP 16; TEMP 36.6; O2SAT 95
--- NOTE | 2019-01-12 13:30 | NURSING ---
Patient discharged at this time. Verbalized understanding to dc instruct. Dr. Vanessa office aware of DVT. Patient verbalized understanding to teaching.
== END 2019-01-12 13:30 | disposition home health service (06) | DRG 560 ==
PROVIDERS: Admitting Provider Psychiatry & Neurology Neurology; Family Provider Student in an Organized Health Care Education/Training Program; PCP Student in an Organized Health Care Education/Training Program; Visit Provider Internal Medicine
DX: S72.092D Other fracture of head and neck of left femur, subsequent encounter for closed fracture with routine healing (principal); I82.492 Acute embolism and thrombosis of other specified deep vein of left lower extremity; W01.0XXD Fall on same level from slipping, tripping and stumbling without subsequent striking against object, subsequent encounter; Z87.891 Personal history of nicotine dependence; I49.9 Cardiac arrhythmia, unspecified
CPT/HCPCS: 36415; 80053; 85025; 93971; 97110; 97116; 97162; 97166; 97530; 97535; 97802

== ENCOUNTER → 2019-01-15 11:18 | Outpatient (CLI) | payer MEDICARE, BC, SELFPAY ==
[2019-01-15 10:54] VITALS: BMI 25.9
--- NOTE | 2019-01-15 11:19 | RAD_ITS ---
STUDY: X-RAY - PELVIS AND LEFT HIP REASON FOR EXAM: Female, 83 years old. Follow-up of postsurgical changes in left hip. TECHNIQUE: 3 views of the pelvis and hip. COMPARISON: January 01, 2010 FINDINGS: There is a non-specific bowel gas pattern. Normal visualized soft tissue structures. Stable generalized osteopenia. Normal bilateral iliac wings, sacroiliac joints and visualized sacrum. Normal bilateral superior and inferior pubic rami. Normal pubic symphysis. Normal bilateral ischial tuberosities. 3 and is in the left proximal femur unchanged in position and alignment. Impacted fracture of the subcapital femur unchanged. Mild arthrosis of the left hip unchanged. No complications. RAD/HIP, UNI W/ Pelvis 2-3 Views IMPRESSION: Stable left hip with no complications. Electronically Signed: Jose E La MD at 16:50 EDT , Service support ,
== END ==
PROVIDERS: Family Provider Student in an Organized Health Care Education/Training Program; PCP Student in an Organized Health Care Education/Training Program; Referring Provider Physician Assistant; Visit Provider Physician Assistant
DX: S72.002A Fracture of unspecified part of neck of left femur, initial encounter for closed fracture (principal)
CPT/HCPCS: 73502

== ENCOUNTER 2019-01-19 04:38 | Emergency (ER) | payer MEDICARE, BC, SELFPAY ==
[2019-01-15 10:54] VITALS: BMI 25.9
[2019-01-19 04:38] VITALS: BP 138/58; PULSE 72; RESP 18; TEMP 36.5; O2SAT 97; BMI 26.2
--- NOTE | 2019-01-19 05:10 | RAD_ITS ---
STUDY: X-RAY - LUMBAR SPINE REASON FOR EXAM: Female, 83 years old. Back pain TECHNIQUE: 3 view(s) of the lumbar spine were obtained. COMPARISON: None FINDINGS: Normal lumbar lordosis. There is no substantial scoliosis. There is a normal alignment of the vertebrae. There is diffuse demineralization with multi-level endplate spondylosis. Mild decrease disc space of the lower thoracic and upper lumbar spine. Depression of the superior endplate of L5 vertebral body of indeterminate age. Facet arthropathy. Grade 1 anterolisthesis L5 on S1. Moderate amount of retained fecal material in the right colon and level of the sigmoid colon, mild air distention of presumed sigmoid colon and pelvic small bowel. RAD/Lumbar Spine 2 or 3 Views IMPRESSION: Osteoporosis, degenerative changes and grade 1 anterolisthesis L5 on S1. Indeterminate loss of vertebral body height of approximately 25% along the superior endplate L5. Intestinal changes as above. Electronically Signed: Marisa Jordan MD at 5:46 EDT , Service support ,
--- NOTE | 2019-01-19 05:30 | ED.VISSUMM ---
- ER Visit Summary Date of Service: 01/19/19 Chief Complaint: Back pain History of Present Illness: The patient is a 83 F who presents with back pain. This been going on for the past 4 days. Her pain is in the right lower back. It is only mild currently. It does not radiate. She denies numbness tingling weakness radiation to the legs fever abdominal pain urinary retention or fecal incontinence. She did have a recent left hip fracture with ORIF. Physical Examination: Afebrile vitals unremarkable Moist mucous membranes Neck supple Heart regular rate and rhythm Lungs clear Abdomen soft nontender Back is nontender to palpation Alert oriented normal strength and sensation of the lower extremities with 5 out of 5 dorsiflexion, plantarflexion, EHL Test Results: Lumbar x-rays show osteoporosis and indeterminate loss of vertebral body height of about 25% along the superior endplate of L5. Emergency Department Course and Treatment: X-rays as above show no acute fracture. Patient is actually comfortable here and pain well controlled. She will be discharged. She was advised on supportive care and advised to follow-up as an outpatient. She understands to return for new or worsening symptoms. She was discharged. Treatment Plan: [] Disposition: Discharge Impression: Back pain This note was generated with [employer] dictation software. It may contain incorrect words, spelling, and punctuation that were not noted in review of the chart prior to signing ED Disposition - Plan for ED Patient: Referrals: Bunny Diaz DO [Primary Care Provider] -
--- NOTE | 2019-01-19 05:51 | ED.DEP ---
ED Disposition - Plan for ED Patient: Instructions: BACK PAIN (Acute or Chronic) Referrals: Bunny Diaz DO [Primary Care Provider] -
== END 2019-01-19 06:41 | disposition home or self-care (01) ==
LOC: ED 05:59
PROVIDERS: Emergency Provider Emergency Medicine; Family Provider Student in an Organized Health Care Education/Training Program; PCP Student in an Organized Health Care Education/Training Program
DX: M54.5 Low back pain (principal); M81.0 Age-related osteoporosis without current pathological fracture
CPT/HCPCS: 72100; 99282

== ENCOUNTER → 2020-03-23 10:38 | Outpatient (CLI) | payer MEDICARE, BC, SELFPAY ==
[2019-04-02 10:03] VITALS: BMI 26.2
[2020-03-23 12:36] LABS: Albumin, Serum 3.5 g/dL (3.2-5.0); BUN 11 mg/dL (7-18); BUN/Creat Ratio 19.8 RATIO (10-20); Calcium,Total 8.7 mg/dL (8.5-10.1); Chloride 106 mmol/L (98-107); Creatinine, Serum 0.56 mg/dL (0.55-1.02); EST Glomerular Filtration Rate 110 mL/min (>60); Est Glom Filt Rate - Afr Amer 134 mL/min (>60); Glucose 95 mg/dL (74-106); Phosphorus 3.3 mg/dL (2.5-4.9); Potassium 3.8 mmol/L (3.5-5.1); Sodium Level 141 mmol/L (136-145)
== END ==
PROVIDERS: PCP Student in an Organized Health Care Education/Training Program; Visit Provider Internal Medicine Nephrology
DX: R33.9 Retention of urine, unspecified (principal)
CPT/HCPCS: 36415; 80069

== ENCOUNTER → 2020-04-20 11:04 | Outpatient (CLI) | payer MEDICARE, BC, SELFPAY ==
[2019-04-02 10:03] VITALS: BMI 26.2
--- NOTE | 2020-04-20 11:10 | RAD_ITS ---
STUDY: X-RAY - ABDOMEN/PELVIS REASON FOR EXAM: Female, 84 years old. abd pain TECHNIQUE: AP supine and upright views of the abdomen and pelvis. COMPARISON: None. FINDINGS: Normal visualized lung bases. There is an unremarkable bowel gas pattern. There is no demonstrated free abdominal air. The visualized liver, spleen and kidneys are grossly normal in size and morphology. Normal soft tissue structures. Hardware in the left femur. RAD/Abd Inc Decub and/or Erect IMPRESSION: Nonobstructive bowel gas pattern. Electronically Signed: Memo Santana MD at 22:10 EST Tel , Service support ,
[2020-04-20 12:42] LABS: CRP < 2.90 mg/L (0.0-3.0)
[2020-04-21 20:07] LABS: Endomysial Antibody IgA Negative (Negative)
[2020-04-21 21:38] LABS: Immunoglobulin A 87 mg/dL (64-422); t-Transglutaminase IgA <2 U/mL (0-3)
== END ==
PROVIDERS: PCP Student in an Organized Health Care Education/Training Program; Referring Provider Internal Medicine Gastroenterology; Visit Provider Internal Medicine Gastroenterology
DX: R19.7 Diarrhea, unspecified (principal); R10.9 Unspecified abdominal pain
CPT/HCPCS: 36415; 74019; 82784; 83516; 86140; 86255

== ENCOUNTER 2020-08-19 13:10 | Outpatient (RCR) | payer MEDICARE, BC, SELFPAY ==
[2019-04-02 10:03] VITALS: BMI 26.2
[2020-08-19] MEDS: COVID-19 VACC, MRNA(PFIZER)/PF 30 MCG/0.3 ML SYRINGE IM (13:47)
[2020-09-09] MEDS: COVID-19 VACC, MRNA(PFIZER)/PF 30 MCG/0.3 ML SYRINGE IM (13:38)
== END 2020-11-15 23:59 ==
LOC: IMMUN 13:10
PROVIDERS: PCP Student in an Organized Health Care Education/Training Program; Visit Provider Family Medicine
DX: Z23 Encounter for immunization (principal)
CPT/HCPCS: 0001A; 0002A; 91300

== ENCOUNTER → 2020-08-23 08:04 | Outpatient (CLI) | payer MEDICARE, BC, SELFPAY ==
[2019-04-02 10:03] VITALS: BMI 26.2
--- NOTE | 2020-08-23 08:25 | RAD_ITS ---
PROCEDURE: SMALL BOWEL SERIES DATE OF EXAMINATION: 08/23/2020. INDICATION: Female, 84 years old. Diarrhea. PHYSICIAN: Fili Mora M.D. FLUOROSCOPY TIME (if supplied): (0:45) minutes/seconds. 16 images were obtained. TECHNIQUE: Radiographic and fluoroscopic images were taken of the small intestine following the ingestion of barium. COMPARISON: None. FINDINGS: A preliminary supine KUB was obtained. There is an unremarkable bowel gas pattern. Fecal material is present throughout the colon. The patient is status post left hip pinning. Degenerative changes of the lumbar spine. The patient orally ingested approximately 12 ounces of thin barium Normal visualized fundus, body, and antrum of the stomach. Normal duodenal bulb, C-loop, and proximal jejunum. Normal visualized mucosal folds of the jejunum and ileum. There are no demonstrated dilatations, strictures, or masses of the small intestine. There is no mass displacement of the loops of small intestine. There is a normal motor pattern with barium reaching the colon within approximately 90 minutes. Spot films under fluoroscopic observation demonstrated a normal terminal ileum and ileocecal valve. RAD/Small Bowel Series Only IMPRESSION: Normal small bowel series. Electronically Signed: Fili Mora MD at 9:55 EDT , Service support ,
== END ==
PROVIDERS: PCP Student in an Organized Health Care Education/Training Program; Referring Provider Internal Medicine Gastroenterology; Visit Provider Internal Medicine Gastroenterology
DX: R19.7 Diarrhea, unspecified (principal)
CPT/HCPCS: 74250

== ENCOUNTER → 2021-06-06 13:06 | Outpatient (CLI) | payer MEDICARE, BC, SELFPAY | PROVIDERS: PCP Student in an Organized Health Care Education/Training Program; Visit Provider Dermatology | DX: B35.1 Tinea unguium (principal); L28.1 Prurigo nodularis | CPT/HCPCS: 87077; 87101 ==

== ENCOUNTER 2022-12-14 09:48 | Emergency (ER) | payer MEDICARE, BC, SELFPAY ==
[2022-12-14 09:52] VITALS: BP 128/55; PULSE 84; RESP 18; TEMP 36.6; O2SAT 97; BMI 25.0
--- NOTE | 2022-12-14 11:05 | ED.VIS.FALL ---
HPI HPI - Fall History of Present Illness Chief Complaint: Fall Detail of Chief Complaint: Injury to left groin after a fall Informant: patient Narrative Narrative: Patient presents the emergency department complaining of left groin pain. Patient states that she had a mechanical fall 3 days ago when she was trying to get some drawers and that were not fitting properly and she lost her balance and fell. She had a hard time getting up. Since that time she is been having pain with walking in the left groin area. Patient also thinks she may have seen blood in her vaginal area when she looked with a mirror because she has been having pain to the groin area. She is not having any blood in her underwear when she wipes. She denies dysuria urgency or frequency. [facility] Medical History (Updated 12/14/22 @ 15:[address] Randy Moseley DO) Actinic keratosis Asthma Bilateral carpal tunnel syndrome Diarrhea DVT (deep venous thrombosis) (01/09/19) Hip fracture, left History of asthma History of irritable bowel syndrome History of macular degeneration History of meningioma (~05/2018) History of osteoarthritis Hyperlipidemia IBS (irritable bowel syndrome) Meningioma Multiple thyroid nodules Home Medications apixaban 5 mg tablet 5 mg PO BID Deep vein thrombosis #60 tabs 01/12/19 [Rx Last Taken 1 Day Ago ~01/18/19] famotidine 20 mg tablet 20 mg PO DAILY GI prevention #30 tabs 01/12/19 [Rx Last Taken 1 Day Ago ~01/18/19] hydrocodone-acetaminophen 5-325mg 5mg-325mg 1 - 2 tab PO PRN PRN Pain 01/19/19 [History Last Taken 01/19/19] diphenoxylate-atropine 2.5 mg-0.025 mg tablet 1 tab PO TID 10/24/21 [History Last Taken Unknown] estradiol 0.01% (0.1 mg/gram) vaginal cream 1 g vaginal QWEEK 10/24/21 [History Last Taken Unknown] folic acid 400 mcg tablet 0.4 mg PO DAILY 10/24/21 [History Last Taken Unknown] Allergy/AdvReac Type Severity Reaction Status Date / Time Sulfa (Sulfonamide AdvReac Unknown Verified 10/24/21 16:40 Antibiotics) Surgical History (Updated 01/14/19 @ 10:28 by Radha Chandra) History of appendectomy History of bilateral cataract extraction History of bunionectomy of left great toe History of colonoscopy History of dilation and curettage History of dilation of urethra History of open reduction and internal fixation (ORIF) procedure (01/01/19) History of tonsillectomy and adenoidectomy Social History (Updated 04/02/19 @ 19:37 by Miki HA, PA) Smoking Status: Never smoker how long ago did patient quit smokin years ago alcohol intake: never substance use type: does not use ROS ROS ED Review of Systems ROS Unobtainable: other Constitutional Constitutional ED: Reports lethargy; Denies chills, fever(s), sweats or weight loss Eyes Eyes: Denies blurry vision, change in vision or diplopia ENT ENT ED: Denies rhinorrhea or sore throat Cardiovascular Cardiovascular: Denies chest pain, orthopnea or racing heartbeat Respiratory/Chest Respiratory/Chest: Denies cough, dyspnea, dyspnea on exertion, orthopnea or sputum Gastrointestinal Gastrointestinal: Denies abdominal pain, diarrhea, nausea or vomiting Genitourinary Genitourinary ED: Reports other Details: Vaginal bleeding ; Denies dysuria, hematuria or urinary frequency Musculoskeletal Musculoskeletal: Reports other Details: Left groin pain ; Denies arthralgias, back pain, myalgias or neck pain Integumentary Denies abscess, Abrasions or rash Neurologic Neurologic: Denies headache(s) or weakness Psychiatric Psychiatric: Denies anxiety, depression or suicidal thoughts Endocrine Endocrinology: Denies polydipsia, polyphagia or polyuria Hematologic/Lymphatic Hematologic/Lymphatic: Denies easy bleeding, easy bruising or lymphadenopathy Allergic/Immunologic Allergic/Immunologic ED: Denies mouth swelling, tongue swelling or urticaria EXAM Physical Exam Const Vital Signs: 12/14/22 09:52 12/14/22 12:41 12/14/22 14:08 Temperature 97.9 F Temperature Source Temporal Pulse Rate 84 75 81 Respiratory Rate 18 16 16 Blood Pressure 128/55 H 134/52 H 107/80 Blood Pressure Mean 79 79 89 Pulse Ox 97 98 98 Oxygen Delivery Method Room Air Room Air Room Air 12/14/22 14:23 12/14/22 15:48 12/14/22 15:45 Temperature Temperature Source Pulse Rate 78 72 Respiratory Rate 16 16 18 Blood Pressure 121/82 H 140/76 H Blood Pressure Mean 95 Pulse Ox 98 99 Oxygen Delivery Method Room Air Positive well nourished and well developed General Appearance ED: well developed and NAD HEENT Reports TM's clear and moist mucous membranes normocephalic and atraumatic; Negative for trauma or tenderness Tympanic Membrane ED: Yes TM's clear Eyes PERRL and EOMs intact bilaterally General Eye ED: Negative for pale conjunctiva or scleral icterus Neck no lymphadenopathy, supple and no JVD General: Negative for tenderness Chest Wall inspection of chest normal and palpation of chest normal Chest: Negative for tenderness Resp normal respiratory effort and clear to auscultation bilaterally Effort and Inspection: Negative for respiratory distress or pain with movement Auscultation: Negative for rhonchi, wheezes or diminished lung sounds Cardio regular rate, regular rhythm, S1 normal heart sound, S2 normal heart sound and no murmurs Peripheral Pulses: pulses 2+ throughout GI normal to inspection, nondistended, normoactive bowel sounds, soft to palpation, non-tender, non-distended and no masses Back/Spine no CVA tenderness and no thoracic nor lumbar tenderness Extremity normal to inspection Extremity Narrative: Tenderness palpation over left groin. General Extremety ED: Negative for edema General Extremity: Negative for edema Neuro oriented x3, CN's II-XII intact bilaterally, no sensory deficits noted and gait normal Sensorium / Orientation: awake, alert, oriented to person, oriented to place and oriented to time Motor Exam: strength 5/5 throughout and strength abnormal Psych mental status grossly normal Skin no rashes or lesions noted and no wounds MDM MDM MDM Narrative Medical decision making narrative: Patient denied anything for pain here. I did do a left vaginal exam and on speculum exam patient has no blood in the vaginal vault. Urinalysis essentially unremarkable. X-rays of her pelvis do show nondisplaced fractures of superior and inferior left pubic rami. Patient was able to ambulate in the department to the bathroom but is concerned about going home as she lives alone and her laundry is in the basement and her neighbors had to buy her groceries. She feels she would benefit from a rehab facility potentially. I will have psychiatric social worker supervisor evaluate patient for possible placement to rehab facility. After eval ration by psychiatric social worker supervisor patient states that she does not want Meals on Wheels or in-home therapy or assistance. Patient states that she think she can manage on her own. Patient does not want to be admitted. She will be discharged home and referred to orthopedics on-call for follow-up. Patient does not want a thing for pain for home. Lab Data Labs: Laboratory Results - last 24 hr 12/14/22 11:29 Urine Color Yellow Urine Clarity Sl. Cloudy Urine pH 7.0 Ur Specific [place] 1.005 Urine Protein Negative Urine Glucose (UA) Normal Urine Ketones Negative Urine Occult Blood 10 H Urine Nitrite Negative Urine Bilirubin Negative Urine Urobilinogen Normal Ur Leukocyte Esterase 100 H Urine RBC 0-5 SEEN Urine WBC 10-25 SEEN Ur Squamous Epith Cells 0-5 SEEN Ur Transition Epith Cell 0-5 SEEN Urine Bacteria 0 SEEN Urine Mucus 0 SEEN Radiography Diagnostic Testing: Clinical Impression(s) from Imaging Studies Hip/Pelvis X-Ray 12/14/22 11:15 IMPRESSION: Nondisplaced fracture of the left superior and inferior pubic rami. Electronically Signed: Fili Mora MD at 12:02 EDT , Three-view x-rays of left hip and pelvis obtained interpreted by myself as fractures of the inferior and superior pubic rami. Radiology in agreement. Discharge Plan Triage Chief Complaint: Fall Other Complaint: Vag Bleeding ED Provider: Randy Moseley Dx/Rx/DC Orders Clinical Impression: Fracture of ramus of left pubis Instructions: ED Pelvic Fracture Prescriptions: No Action estradiol 0.01 % (0.1 mg/gram) cream 1 g vaginal QWEEK diphenoxylate-atropine 2.5-0.025 mg tablet 1 tab PO TID folic acid 400 mcg tablet 0.4 mg PO DAILY apixaban 5 MG tablet 5 mg PO BID Qty: 60 2RF Rx Instructions: x 3 months famotidine 20 MG tablet 20 mg PO DAILY Qty: 30 2RF Rx Instructions: x 3 months while taking eliquis hydrocodone-acetaminophen 5 MG-32 tablet 1 - 2 tab PO PRN PRN (Reason: Pain) Primary Care Provider: Bunny Diaz Referrals: Bunny Diaz DO [Primary Care Provider] - Byron Yee DO [Med Staff - Active Staff] - 5-7 Days Disposition Disposition: Home, Self Care Discharge Date/Time: 12/14/22 15:50
--- NOTE | 2022-12-14 11:15 | RAD_ITS ---
STUDY: X-RAY - PELVIS AND LEFT HIP REASON FOR EXAM: Female, 87 years old. Left hip pain following a fall. TECHNIQUE: 3 views of the pelvis and hip. COMPARISON: Comparison is made with prior study dated January 15, 2019. FINDINGS: There is a non-specific bowel gas pattern. Normal visualized soft tissue structures. Normal bilateral iliac wings, sacroiliac joints and visualized sacrum. Nondisplaced left superior and inferior pubic rami fracture. Normal pubic symphysis. Normal bilateral ischial tuberosities. The patient is status post screw fixation of a left subcapital fracture. Normal acetabulum. There is mild articular joint space narrowing of the hip. RAD/HIP, UNI W/ Pelvis 2-3 Views IMPRESSION: Nondisplaced fracture of the left superior and inferior pubic rami. Electronically Signed: Fili Mora MD at 12:02 EDT ,
[2022-12-14 11:31] LABS: Bacteria 0 SEEN /hpf (None Seen); Mucous, Urine 0 SEEN /hpf (<or=2+)
[2022-12-14 11:38] LABS: Color, Urine Yellow (Yellow); Glucose, Dipstick Normal (Normal); Ketone-Dipstick Negative (Negative); Leukocyte Esterase-Dipstick 100 /ul (Negative); Nitrite-Dipstick Negative (Negative); Occult Blood-Urine 10 /ul (Negative); Protein-Dipstick Negative (Negative); Specific Gravity, Urine 1.005 (1.002-1.030); Urine Bilirubin Dipstick Negative (Negative); Urine Clarity Sl. Cloudy (Clear); Urine Urobilinogen Normal (Normal)
[2022-12-14 11:53] LABS: Red Blood Cells-Urine 0-5 SEEN /hpf (0-5); Squamous Epithelial Cells - UA 0-5 SEEN /hpf (5-10); Transitional Epithelial - Ur 0-5 SEEN /hpf (0-5); White Blood Cells 10-25 SEEN /hpf (0-5)
[2022-12-14 12:41] VITALS: BP 134/52; PULSE 75; RESP 16; O2SAT 98
[2022-12-14 14:08] VITALS: BP 107/80; PULSE 81; RESP 16; O2SAT 98
[2022-12-14 14:23] VITALS: BP 121/82; PULSE 78; RESP 16; O2SAT 98
[2022-12-14 15:45] VITALS: BP 140/76; PULSE 72; RESP 18; O2SAT 99
[2022-12-14 15:48] VITALS: RESP 16
--- NOTE | 2022-12-14 15:48 | ED.RN ---
PT REFUSED TO LET THIS RN TAKE VITAL SIGNS PRIOR TO DISCHARGE. RESPIRATIONS EVEN, NONLBAORED. THIS RN CALLED [facility] FOR PT AT 1545. PT AMBULATED TO WAITING ROOM WITH WALKER.
--- NOTE | 2022-12-14 16:02 | CM.ED ---
Social Work SW introduced self and role to patient. SW reviewed patient's mobility due to fracture and living alone. Pt was able to get up and walk well with her walker. There are some logistics like laundry and getting groceries that she has some concerns about. Dr. Wang is concerned regarding her living independently. SW reviewed options with patient and checked with rehab for availability. Rehab has no beds and patient is denying she needs a facility. SW discussed home health care and patient declined and reports she does not need help at home. SW offered to make a Meals on Wheels referral and patient declined. Pt does have an alert button she wears in case she falls. Pt denyied offered referrals and insists she is able to reside at home independently. Discussed with physician and patient to d/c home. Nissa Hernández DIGITAL MEDIA STRATEGIST, SERVICE CORRESPONDENT
== END 2022-12-14 15:50 | disposition home or self-care (01) ==
PROVIDERS: Emergency Provider Emergency Medicine; PCP Student in an Organized Health Care Education/Training Program; Visit Provider Emergency Medicine
DX: S32.82XA Multiple fractures of pelvis without disruption of pelvic ring, initial encounter for closed fracture (principal); N93.9 Abnormal uterine and vaginal bleeding, unspecified; Z86.718 Personal history of other venous thrombosis and embolism; Z79.01 Long term (current) use of anticoagulants; K58.9 Irritable bowel syndrome, unspecified; Z79.899 Other long term (current) drug therapy; Z90.49 Acquired absence of other specified parts of digestive tract; Z98.41 Cataract extraction status, right eye; Z98.42 Cataract extraction status, left eye; W18.39XA Other fall on same level, initial encounter
CPT/HCPCS: 73502; 81001; 99282

== ENCOUNTER 2023-04-15 13:54 | Emergency (ER) | payer MEDICARE, BC, SELFPAY ==
[2023-04-15] VITALS (9 sets, daily range): BP systolic 124–147; BP diastolic 63–100; PULSE 67–94; RESP 16–32; TEMP 36.3; O2SAT 94–100; BMI 22.4
--- NOTE | 2023-04-15 14:10 | RAD_ITS ---
STUDY: X-RAY - RIGHT SHOULDER REASON FOR EXAM: Female, 87 years old. Fall, injury pain to shoulder TECHNIQUE: view(s) of the shoulder. COMPARISON: None. FINDINGS: Anterior inferior subluxation of the glenohumeral joint. There is degenerative arthrosis of the acromioclavicular joint without inferior osseous spur formation. Normal acromion. Nondisplaced fracture of the surgical neck of the humerus with extension into the greater and lesser tuberosities. Joint effusion. Normal visualized pulmonary apex. RAD/Shoulder min 2 Views IMPRESSION: Anterior inferior subluxation with fracture through the proximal surgical neck of the humerus with extension of the greater and lesser tuberosities. Electronically Signed: Fili Mora MD at 14:32 EST ,
--- NOTE | 2023-04-15 15:13 | EDS_ITS ---
HPI History of Present Illness Chief Complaint: Upper Extremity Injury Informant: patient Narrative Narrative: Patient presents after a fall at home. Patient slipped on leaves at home. She landed on an outstretched shoulder and then hit the shoulder. She states that the only part that hurts. She never hit her head. She was not syncopal. She is on Eliquis due to history of DVT. No recent bleeding. She states she has felt fine before the event. The only thing that hurts is the right shoulder. [facility] Medical History Actinic keratosis Asthma Bilateral carpal tunnel syndrome Diarrhea DVT (deep venous thrombosis) (01/09/19) Hip fracture, left History of asthma History of irritable bowel syndrome History of macular degeneration History of meningioma (~05/2018) History of osteoarthritis Hyperlipidemia IBS (irritable bowel syndrome) Meningioma Multiple thyroid nodules Home Medications apixaban 5 mg tablet 5 mg PO BID Deep vein thrombosis #60 tabs 01/12/19 [Rx Last Taken 1 Day Ago ~01/18/19] famotidine 20 mg tablet 20 mg PO DAILY GI prevention #30 tabs 01/12/19 [Rx Last Taken 1 Day Ago ~01/18/19] hydrocodone-acetaminophen 5-325mg 5mg-325mg 1 - 2 tab PO PRN PRN Pain 01/19/19 [History Last Taken 01/19/19] diphenoxylate-atropine 2.5 mg-0.025 mg tablet 1 tab PO TID 10/24/21 [History Last Taken Unknown] estradiol 0.01% (0.1 mg/gram) vaginal cream 1 g vaginal QWEEK 10/24/21 [History Last Taken Unknown] folic acid 400 mcg tablet 0.4 mg PO DAILY 10/24/21 [History Last Taken Unknown] hydrocodone-acetaminophen 5-325mg 5mg-325mg 1 tab PO Q6H PRN PRN Pain 3 days #10 TABLETS 04/15/23 [Rx Last Taken Unknown] Allergy/AdvReac Type Severity Reaction Status Date / Time Sulfa (Sulfonamide AdvReac Unknown Verified 04/15/23 13:56 Antibiotics) Surgical History History of appendectomy History of bilateral cataract extraction History of bunionectomy of left great toe History of colonoscopy History of dilation and curettage History of dilation of urethra History of open reduction and internal fixation (ORIF) procedure (01/01/19) History of tonsillectomy and adenoidectomy Social History Smoking Status: Never smoker how long ago did patient quit smokin years ago alcohol intake: never substance use type: does not use ROS ROS ED ROS Narrative A complete review of systems was performed and is negative except as documented in the history of present illness. Some specific details below. Constitutional: No recent fevers or chills. No malaise EYE: No visual complaints or pain. No visual field cut. ENT: No difficulty swallowing. No swelling. No pain. She states she never hit her head at all. CV: No chest pain or palpitations. She was not syncopal. This was a mechanical fall. Respiratory: No dyspnea. No hemoptysis. No difficulty taking breaths. GI: No nausea or vomiting. No recent diarrhea. : No frequency dysuria or hematuria. Musculoskeletal: See history of present illness. Skin: No rash. Nondiaphoretic. Neuro: No weakness or numbness. Endocrine: No polyuria or polydipsia. EXAM Physical Exam Narrative Exam Narrative: General: Patient is awake alert no acute distress. She is very pleasant and appropriate in bed. HEENT: I see no sign of trauma contusions abrasions or tenderness or swelling. No sign that she hit her head at all. Neck is supple no pain with motion or palpation. Lungs are clear bilaterally. Saturations are normal at 99% on room air showing no hypoxia. Heart is regular. Rate of about 70. Abdomen is soft and nontender Back shows no cervical thoracic or lumbosacral tenderness. Extremities there is some tenderness to the lateral aspect of the shoulder. But she does not have a step-off below the acromion. There may be a little bit of fullness likely from intra-articular bleeding. Clinically she does not look the way shoulder typically appears when dislocated. Sensation pulse and capillary refill are intact distally. Const Vital Signs: 04/15/23 13:56 04/15/23 15:11 Temperature 97.4 F L Temperature Source Temporal Pulse Rate 83 67 Respiratory Rate 16 16 Blood Pressure 124/100 H 142/72 H Blood Pressure Mean 108 95 Pulse Ox 100 99 Oxygen Delivery Method Room Air MDM MDM MDM Narrative Medical decision making narrative: My independent interpretation of her shoulder does show subluxation with fracture. But when I see the patient she does not appear to have this dislocation. It may be that the swelling from Eliquis is altering the exam. But these x-rays were done over an hour ago. The nurse stated she had been in triage for a while. The patient had helped get in and out of her clothing and gown so her shoulder may in fact be relocated. I will repeat another film. If this is still out I think she does need some sedation and reduction. But if I can avoid this in the patient that would be appropriate and would justify a second film. My independent interpretation of the repeat film shows improvement. I was waiting for the final read. It ends up this film was read at approximately 334 this afternoon. But we kept waiting for the read and asking for it. I was then able to get a printout of the reading at approximately 520 5 in the afternoon. Evidently the reading was done but it did not cross through in such way that we could see this. Radiology feels also that there is persistent subluxation. So at this point we will attempt to improve positioning. Seizure: Procedural sedation and shoulder reduction. I discussed risks and benefits and options. Patient had airway evaluation. Last meal was early in the day. She has a Mallampati 1. No history of problems with anesthesia. Timeout was performed. We used a total of 50 mg of propofol. Good sedation was achieved. With traction and external rotation we are able to reduce the shoulder easily. There is very little even external rotation. Range of motion seem to good afterwards. She was placed in a sling. I stayed in the room until patient was awake. My independent interpretation of her final x-ray of the shoulder shows improved position and final reading is similar. Patient states she just wants Tylenol for pain. I will write for hydrocodone because I see she has been prescribed this in the past and is tolerated. But have encouraged her to try only Tylenol. She will follow-up with orthopedics. Radiography Diagnostic Testing: Clinical Impression(s) from Imaging Studies Shoulder X-Ray 04/15/23 14:10 IMPRESSION: Anterior inferior subluxation with fracture through the proximal surgical neck of the humerus with extension of the greater and lesser tuberosities. Electronically Signed: Fili Mora MD at 14:32 EST , Discharge Plan Triage Chief Complaint: Upper Extremity Injury ED Provider: Joseph Soto Dx/Rx/DC Orders Clinical Impression: Fall at home, Closed fracture dislocation of right shoulder Instructions: ED Dislocation: Shoulder (Reduced), ED Fracture, Shoulder Prescriptions: New hydrocodone-acetaminophen [hydrocodone-acetaminophen] 5-325 mg tablet 1 tab PO Q6H PRN PRN (Reason: Pain) 3 Days Qty: 10 0RF No Action estradiol 0.01 % (0.1 mg/gram) cream 1 g vaginal QWEEK diphenoxylate-atropine 2.5-0.025 mg tablet 1 tab PO TID folic acid 400 mcg tablet 0.4 mg PO DAILY apixaban 5 MG tablet 5 mg PO BID Qty: 60 2RF Rx Instructions: x 3 months famotidine 20 MG tablet 20 mg PO DAILY Qty: 30 2RF Rx Instructions: x 3 months while taking eliquis hydrocodone-acetaminophen 5 MG-32 tablet 1 - 2 tab PO PRN PRN (Reason: Pain) Primary Care Provider: Bunny Diaz Referrals: Bunny Diaz DO [Primary Care Provider] - Amado Moscoso MD [Med Staff - Active Staff] - 3-5 Days Disposition Disposition: Home, Self Care
--- NOTE | 2023-04-15 15:15 | RAD_ITS ---
STUDY: X-RAY - RIGHT SHOULDER REASON FOR EXAM: Female, 87 years old. Status post possible spontaneous reduction TECHNIQUE: 2 view(s) of the shoulder. COMPARISON: Comparison is made with prior study done earlier today. FINDINGS: Persistent anterior inferior subluxation of the shoulder joint. Stable fracture of the proximal surgical neck. RAD/Shoulder min 2 Views IMPRESSION: Persistent anterior inferior subluxation of the right shoulder joint. Electronically Signed: Fili Mora MD at 15:34 EST ,
[2023-04-15] MEDS: Acetaminophen 500 MG Tablet PO (15:46)
[2023-04-15] MEDS: Propofol 200 MG/20 ML Vial IV BOLUS (19:22)
--- NOTE | 2023-04-15 19:54 | RAD_ITS ---
INDICATION: Postreduction EXAMINATION/TECHNIQUE: X-RAY - RIGHT XR Shoulder 2 VIEWS COMPARISON: The 2022 at 15:16 hours FINDINGS: Status post reduction of shoulder dislocation with improved alignment. There is a fracture at the humeral greater tuberosity.. RAD/Shoulder min 2 Views IMPRESSION: Status post reduction of shoulder dislocation. Fracture through the greater tuberosity of the right humerus. Electronically Signed: Imtiaz West DO at 20:53 EST ,
== END 2023-04-15 22:21 | disposition home or self-care (01) ==
PROVIDERS: Emergency Provider Emergency Medicine; PCP Student in an Organized Health Care Education/Training Program; Visit Provider Emergency Medicine
DX: S43.081A Other subluxation of right shoulder joint, initial encounter (principal); W01.10XA Fall on same level from slipping, tripping and stumbling with subsequent striking against unspecified object, initial encounter; Y92.009 Unspecified place in unspecified non-institutional (private) residence as the place of occurrence of the external cause; Z86.718 Personal history of other venous thrombosis and embolism; Z79.01 Long term (current) use of anticoagulants; Z90.49 Acquired absence of other specified parts of digestive tract; Z98.41 Cataract extraction status, right eye; Z98.42 Cataract extraction status, left eye; S42.91XA Fracture of right shoulder girdle, part unspecified, initial encounter for closed fracture
CPT/HCPCS: 23665; 73030; 99285; J7030; A4216